=== PATIENT | male | born 1965 | race Caucasian/White ===

== ENCOUNTER 2017-06-08 14:38 | Observation (INO) | payer BC ==
[~2017-06-08] VITALS: Ht 177.8 cm; Wt 123.2 kg
[~2017-06-08 14:38] MED LIST: ACET-1256 PO; ALBUAER2 INH; ASCA500 PO; CANA1TAB PO; CITA40TA4 PO; IBUP-1277 PO; INSUINJ34 SC; INSUINJ4 SC; INSUINJ5 SC; LISI-461 PO; METF-384 PO; METO-478 PO; MULT-506 PO; SIMV20TA2 PO; potassium PO
[2017-06-08] MEDS ORDERED: ONDANSETRON 4MG OD TAB ONE (14:59)
[2017-06-08] MEDS ORDERED: ASPIRIN 324 MG CHEW PO STA (15:01)
--- NOTE | 2017-06-08 15:24 | EMERGENCY ROOM VISIT NOTE ---
History First contact with patient: 14:51 Chief Complaint: CARDIAC ASSESSMENT Stated Complaint: CHEST PAIN Nursing Triage Summary: patient presents via ambulance for pressure across top of chest. "it feels tight in my throat. I have been feeling a pounding in my chest off and on. nausea and dizziness as well. History of Present Illness The patient is a 51 year old male who presents to the Emergency Room with complaints of "chest pain". 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 He states that he has had a headache for 2 days , does not feel quite right. 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 He felt very nauseous. He describes the pain as a burning sensation in his chest. It is not pressure-like. He notes that the pain has now subsided. He felt that given the underlying family history he should be evaluated. He had a baby aspirin last night but none today. There is also shortness of breath accompanying his chest pain. Review of Systems A complete 10-point Review of Systems was discussed with the patient, with pertinent positives and negatives listed in the History of Present Illness. All remaining Review of Systems questions can be considered negative unless otherwise specified. Past Medical/Surgical History Medical Problems: (1) Asthma (2) Diabetes mellitus, type II (3) HLD (hyperlipidemia) (4) HTN (hypertension) (5) Lumbar spinal stenosis (6) Mood disorder (7) JERMAINE on CPAP (8) Osteoarthritis (9) Umbilical hernia Surgical Problems: (1) S/P TKR (total knee replacement) (2) Status post cardiac catheterization Family History Cancer Diabetes mellitus Heart disease Hypertension Kidney disease or stones Social History Smoking Status: Never Smoker Alcohol Use: none Drug Use: none Marital Status: Housing Status: lives with family Occupation Status: employed Current/Historical Medications Scheduled Ascorbic Acid (Vitamin C *), 1,000 MG PO BID Aspirin (Aspirin EC Low Dose), 1 TAB PO PM Canagliflozin (Invokana), 100 MG PO DAILY Citalopram (Citalopram Hydrobromide), 1 TAB PO DAILY Fluticasone Propionate (Flovent Hfa), 2 PUFFS PO BID Insulin Glargine (Lantus Solostar Pen), 30 UNITS SC HS Insulin Glulisine (Apidra Solostar), SC DIRECTED Insulin Glulisine (Apidra), 6 UNITS SC QAM Insulin Glulisine (Apidra), 10 UNITS SC LUNCH,SUPPER Lisinopril (Lisinopril), 1 TAB PO DAILY Magnesium Oxide (Mag-Ox), 2 TABS PO QPM Metformin Hcl (Glucophage), 1,000 MG PO BID Metoprolol Succinate (Toprol Xl), 25 MG PO QPM Multivitamin (Multivitamin), 1 TAB PO QAM Simvastatin (Zocor), 20 MG PO QPM [potassium], 99 MG PO QPM Scheduled PRN Acetaminophen (Tylenol), 2 TABS PO Q4 PRN for Pain Albuterol (Ventolin), 2 PUFFS INH QID PRN for prn Ibuprofen (Advil), 400 MG PO Q4 PRN for Pain Meloxicam (Mobic), 15 MG PO DAILY PRN for Pain Physical Exam Vital Signs Date Time Temp Pulse Resp B/P (MAP) Pulse Ox O2 Delivery O2 Flow Rate FiO2 06/08/17 18:58 85 16 112/83 93 Room Air 06/08/17 17:22 77 16 90/77 95 06/08/17 16:23 135/86 06/08/17 16:08 68 15 92 06/08/17 16:00 125/77 06/08/17 15:38 67 95 06/08/17 15:30 154/88 06/08/17 15:18 78 06/08/17 15:08 71 25 93 06/08/17 15:05 147/77 06/08/17 14:49 95 Room Air 06/08/17 14:49 36.6 76 18 137/84 95 Room Air 06/08/17 14:49 95 Room Air 06/08/17 14:46 137/84 Physical Exam VITAL SIGNS - Vital signs and nursing notes were reviewed. Stable. GENERAL - 51-year-old male appearing his stated age who is in no acute distress. Communicates well with provider and answers questions appropriately. SKIN - bruising noted to the left hand and the anterior abdomen. HEAD - NC/AT. EYES - Sclera anicteric. EARS - No deformities of external structures noted on gross examination bilaterally. NOSE - Midline and without cyanosis. MOUTH/OROPHARYNX - Without perioral cyanosis. LUNGS - Chest wall symmetric without accessory muscle use, intercostals retractions, or central cyanosis. Normal vesicular breath sounds CTA B/L. No wheezes, rales, or rhonchi appreciated. CARDIAC - RRR with S1/S2. No murmur, rubs, or gallops appreciated. ABDOMEN - Abdominal contour normal without pulsations or visible masses. BS normoactive all four quadrants. No tenderness, palpable masses, hepatosplenomegaly, or ascites noted. Medical Decision & Procedures ER Provider Diagnostic Interpretation: CHEST ONE VIEW PORTABLE CLINICAL HISTORY: 51 years-old Male presenting with chest pain. TECHNIQUE: Portable upright AP view of the chest was obtained. COMPARISON: 04/22/2016. FINDINGS: Cardiac silhouette moderately enlarged. Few bandlike opacities at the lung bases. No other focal infiltrate. No large effusion or pneumothorax. Osseous structures normal. IMPRESSION: 1. Cardiomegaly. No isai pulmonary edema. Minimal bibasilar atelectasis. Electronically signed by: Isra Puentes M.D. 06/08/2017 3:49 PM Dictated Date/Time: 06/08/2017 3:48 PM ULTRASOUND VENOUS DOPPLER LWR EXT BILA CLINICAL HISTORY: Dyspnea, chest pain, elevated D dimer COMPARISON STUDY: 01/25/2009 FINDINGS: Real-time and color flow Doppler imaging were performed. Flow was seen within the femoral, popliteal and calf veins with no intraluminal thrombus demonstrated. The saphenous vein is patent. IMPRESSION: No evidence of lower extremity DVT. Electronically signed by: Meng Bennett M.D. 06/08/2017 7:29 PM Dictated Date/Time: 06/08/2017 7:29 PM Laboratory Results 06/08/17 15:00 Red Blood Count 5.16, Mean Corpuscular Volume 89.5, Mean Corpuscular Hemoglobin 30.0, Mean Corpuscular Hemoglobin Concent 33.5, Mean Platelet Volume 10.3, Neutrophils (%) (Auto) 66.9, Lymphocytes (%) (Auto) 22.0, Monocytes (%) (Auto) 9.4, Eosinophils (%) (Auto) 0.8, Basophils (%) (Auto) 0.2, Neutrophils # (Auto) 5.76, Lymphocytes # (Auto) 1.90, Monocytes # (Auto) 0.81, Eosinophils # (Auto) 0.07, Basophils # (Auto) 0.02 06/08/17 15:00 Test 06/08/17 15:00 06/08/17 15:45 White Blood Count 8.62 K/uL (4.8-10.8) Red Blood Count 5.16 M/uL (4.7-6.1) Hemoglobin 15.5 g/dL (14.0-18.0) Hematocrit 46.2 % (42-52) Mean Corpuscular Volume 89.5 fL (80-100) Mean Corpuscular Hemoglobin 30.0 pg (25-34) Mean Corpuscular Hemoglobin Concent 33.5 g/dl (32-36) Platelet Count 214 K/uL (130-400) Mean Platelet Volume 10.3 fL (7.4-10.4) Neutrophils (%) (Auto) 66.9 % Lymphocytes (%) (Auto) 22.0 % Monocytes (%) (Auto) 9.4 % Eosinophils (%) (Auto) 0.8 % Basophils (%) (Auto) 0.2 % Neutrophils # (Auto) 5.76 K/uL (1.4-6.5) Lymphocytes # (Auto) 1.90 K/uL (1.2-3.4) Monocytes # (Auto) 0.81 K/uL (0.11-0.59) Eosinophils # (Auto) 0.07 K/uL (0-0.5) Basophils # (Auto) 0.02 K/uL (0-0.2) RDW Standard Deviation 49.3 fL (36.4-46.3) RDW Coefficient of Variation 15.2 % (11.5-14.5) Immature Granulocyte % (Auto) 0.7 % Immature Granulocyte # (Auto) 0.06 K/uL (0.00-0.02) Prothrombin Time 10.2 SECONDS (9.0-12.0) Prothromb Time International Ratio 1.0 (0.9-1.1) Activated Partial Thromboplast Time 23.1 SECONDS (21.0-31.0) Partial Thromboplastin Ratio 0.9 D-Dimer 860 ug/L FEU (0-500) Anion Gap 10.0 mmol/L (3-11) Est Creatinine Clear Calc Drug Dose 114.4 ml/min Estimated GFR () 96.6 Estimated GFR (Non- 83.3 BUN/Creatinine Ratio 19.0 (10-20) Calcium Level 9.0 mg/dl (8.5-10.1) Magnesium Level 2.2 mg/dl (1.8-2.4) Total Bilirubin 0.4 mg/dl (0.2-1) Aspartate Amino Transf (AST/SGOT) 16 U/L (15-37) Alanine Aminotransferase (ALT/SGPT) 35 U/L (12-78) Alkaline Phosphatase 44 U/L (45-117) Total Creatine Kinase 48 U/L (39-308) Creatine Kinase MB 1.0 ng/ml (0.5-3.6) Creatine Kinase MB Ratio 2.1 (0-3.0) Total Protein 7.2 gm/dl (6.4-8.2) Albumin 3.6 gm/dl (3.4-5.0) Globulin 3.6 gm/dl (2.5-4.0) Albumin/Globulin Ratio 1.0 (0.9-2) Thyroid Stimulating Hormone (TSH) 2.300 uIu/ml (0.300-4.500) Carboxyhemoglobin 0.9 % [facility] Medications Administered Medications (Trade) Dose Ordered Sig/Buddy Route Start Time Stop Time Status Last Admin Dose Admin Aspirin (Aspirin Chew) 324 mg NOW STAT PO 06/08/17 15:01 06/08/17 15:04 DC 06/08/17 15:30 324 MG Acetaminophen (Tylenol Tab) 650 mg NOW STAT PO 06/08/17 18:17 06/08/17 18:18 DC 06/08/17 18:59 650 MG Medical Decision Patient was seen and evaluated as above. He presents to us today with chest pain. He has a heart score 4, given his underlying diabetes, his presentation, hypertension, and age. He was given a full strength aspirin. He had no chest pain upon presentation. IV access was initiated, and the above workup was performed. Bedside EKG per my interpretation reveals normal sinus rhythm, with occasional PVCs. There is no evidence of OR given the study. CBC reveals no concerning leukocytosis or anemia. Carboxyhemoglobin negative, this was ordered secondary to the patient's occupation and recent smoke exposure and headache. Coags normal. Metabolic panel reveals no evidence of kidney or liver failure. He does appear to be dehydrated. Troponin negative. TSH normal. Urine reveals trace ketones, 3+ glucose, otherwise negative. After the patient's kidney function was found to be appropriate decision with benefits versus risk was discussed with the patient regarding obtaining a d- dimer. Although the patient's vital signs are stable, he does have shortness of breath with chest pain. D-dimer was positive. Unfortunately I went to discuss this with the patient and he noted a iodine allergy. He notes he vital he vomits with contrast. I will obtain Doppler studies, and believe that admission for chest pain rule out is appropriate and if needed a VQ scan could be obtained or await the ultrasound results. He appears stable for management. Case was discussed with the attending physician, and septally the hospitalist. Please refer to further documentation regarding the patient's stay. In evaluation treatment this patient the following differential diagnoses were entertained: OR, PE, peritonitis, costochondritis, influenza, asthma, bronchitis , among others. Impression Primary Impression: Chest pain Departure Information Referrals Kailash Soto M.D. (PCP) Patient Instructions [facility]
[2017-06-08 15:40] LABS: BASO % 0.2 %; BASO ABS # 0.02 K/uL (0-0.2); EOS % 0.8 %; EOS ABS # 0.07 K/uL (0-0.5); HEMATOCRIT 46.2 % (42-52); HEMOGLOBIN 15.5 g/dL (14.0-18.0); IG# 0.06 K/uL (0.00-0.02); MEAN CELL VOLUME 89.5 fL (80-100); MEAN CORPUSCULAR HGB CONC 33.5 g/dl (32-36); MEAN PLATELET VOLUME 10.3 fL (7.4-10.4); MONO % 9.4 %; MONO ABS # 0.81 K/uL (0.11-0.59); NEUT % 66.9 %; NEUT ABS # 5.76 K/uL (1.4-6.5); PLATELET COUNT 214 K/uL (130-400); RED CELL DISTRIBUTION WIDTH CV 15.2 % (11.5-14.5); RED CELL DISTRIBUTION WIDTH SD 49.3 fL (36.4-46.3); WHITE BLOOD COUNT 8.62 K/uL (4.8-10.8)
--- NOTE | 2017-06-08 15:50 | DIAGNOSTIC IMAGING REPORT ---
CHEST ONE VIEW PORTABLE CLINICAL HISTORY: 51 years-old Male presenting with chest pain. TECHNIQUE: Portable upright AP view of the chest was obtained. COMPARISON: 04/22/2016. FINDINGS: Cardiac silhouette moderately enlarged. Few bandlike opacities at the lung bases. No other focal infiltrate. No large effusion or pneumothorax. Osseous structures normal. IMPRESSION: 1. Cardiomegaly. No isai pulmonary edema. Minimal bibasilar atelectasis. Electronically signed by: Isra Puentes M.D. 06/08/2017 3:49 PM Dictated Date/Time: 06/08/2017 3:48 PM
[2017-06-08 15:51] LABS: ALBUMIN 3.6 gm/dl (3.4-5.0); ALT/SGPT 35 U/L (12-78); AST/SGOT 16 U/L (15-37); BLOOD UREA NITROGEN 20 mg/dl (7-18); CARBON DIOXIDE 28 mmol/L (21-32); CREATININE 1.04 mg/dl (0.60-1.40); GLUCOSE 147 mg/dl (70-99); POTASSIUM 4.2 mmol/L (3.5-5.1); PTT PATIENT 23.1 SECONDS (21.0-31.0); SODIUM 137 mmol/L (136-145)
[2017-06-08 16:02] LABS: ALKALINE PHOSPHATASE 44 U/L (45-117); TOTAL PROTEIN 7.2 gm/dl (6.4-8.2)
[2017-06-08] MEDS ORDERED: MAGN400T6 PO (16:11)
[2017-06-08] MEDS ORDERED: ACETAMINOPHEN 325 MG TAB PO STA (18:17)
[2017-06-08] MEDS ORDERED: DEXTROSE 50% 50 ML SYR IV PRN (19:15)
[2017-06-08] MEDS ORDERED: GLUCOSE 40% GEL 15 GM TUBE PO PRN (19:15)
[2017-06-08] MEDS ORDERED: GLUCAGON FOR INJ 1 MG VIAL SQ PRN (19:15)
[2017-06-08] MEDS ORDERED: GLUCOSE 10 TABS/TUBE PO PRN (19:15)
--- NOTE | 2017-06-08 19:31 | DIAGNOSTIC IMAGING REPORT ---
ULTRASOUND VENOUS DOPPLER LWR EXT BILA CLINICAL HISTORY: Dyspnea, chest pain, elevated D dimer COMPARISON STUDY: 01/25/2009 FINDINGS: Real-time and color flow Doppler imaging were performed. Flow was seen within the femoral, popliteal and calf veins with no intraluminal thrombus demonstrated. The saphenous vein is patent. IMPRESSION: No evidence of lower extremity DVT. Electronically signed by: Meng Bennett M.D. 06/08/2017 7:29 PM Dictated Date/Time: 06/08/2017 7:29 PM
[2017-06-08] MEDS ORDERED: FLVHFA220 PO (19:40)
[2017-06-08] MEDS ORDERED: LSN5 PO (19:40)
[2017-06-08] MEDS ORDERED: MELO15TA10 PO (19:40)
[2017-06-08] MEDS ORDERED: ASPEC81 PO (19:40)
[2017-06-08] MEDS ORDERED: ACET-1311 PO (19:42)
[2017-06-08] MEDS ORDERED: ONDANSETRON INJ 2 MG/ML 2 ML VIAL IV PRN (19:45)
[2017-06-08] MEDS ORDERED: MELOXICAM 7.5 MG TAB PO PRN (19:45)
[2017-06-08] MEDS ORDERED: ALBUTEROL HFA 8 GM INHALER INH PRN (19:45)
--- NOTE | 2017-06-08 19:48 | History and Physical ---
History & Physical Date & Time of Service: Jun 08, 2017 at 19:46 Chief Complaint: Chest Pain Primary Care Physician: Kailash Soto M.D. History of Present Illness Source: patient, clinic records, hospital records This is a 51yo M with a PMH of HTN, DM II, HLD, depression/anxiety, JERMAINE (with cpap) and other medical problems listed below who presents with a burning sensation in his chest beginning this afternoon. 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 Describes it as a warm, burning feeling that would last for a minute at a time, resolve and then occur again. Associated with nausea, lightheadedness and palpitations. Denies any pressure, sharp pain or diaphoresis. Was brought to the ED for further evaluation. States that he has experienced both panic attacks and GERD in the past and that this event felt like a more severe version of a panic attack. Endorses feeling stressed lately because of work. Underwent a cardiac work-up in 2008, which was negative. Dobutamine stress test was negative for inducible ischemia and cardiac cath performed in [facility] for persistent symptoms showed normal coronary arteries. Was evaluated again in 2015 for chest pain and underwent exercise stress test. No evidence of inducible ischemia but was a sub-optimal test as it was stopped early 2/2 leg fatigue. Echo from Apr 2016 with normal LV function, EF of 60-65%. + family history of heart disease. Was seen in late May by PCP for treatment of sinusitis and PNA. Has completed a course of azithromycin and was prescribed a flovent inhaler he has been using twice a day. States that his cough and SOB have improved but he still has not "felt like himself" for a few days now, with a dull frontal headache and diarrhea. Denies any sick contacts. Past Medical/Surgical History Medical Problems: (1) Asthma Status: Chronic (2) Diabetes mellitus, type II Status: Chronic (3) HLD (hyperlipidemia) Status: Chronic (4) HTN (hypertension) Status: Chronic (5) Lumbar spinal stenosis Status: Chronic (6) Mood disorder Status: Chronic (7) JERMAINE on CPAP Status: Chronic (8) Osteoarthritis Status: Chronic (9) Umbilical hernia Status: Chronic Surgical Problems: (1) S/P TKR (total knee replacement) Status: Chronic (2) Status post cardiac catheterization Permanent Comment: 02/10/16 [facility] - normal coronaries Status: Chronic Family History Cancer Diabetes mellitus Heart disease Hypertension Kidney disease or stones Social History Smoking Status: Never Smoker Drug Use: none Marital Status: Housing status: lives with family Occupational Status: employed Immunizations History of Influenza Vaccine: Yes History of Tetanus Vaccine?: Yes History of Pneumococcal: Yes History of Hepatitis B Vaccine: No Multi-Drug Resistant Organisms History of MDRO: No Allergies Coded Allergies: Amoxicillin (Verified Allergy, Intermediate, hives, 06/08/17) Cephalosporins (Verified Allergy, Intermediate, hives, 06/08/17) Penicillins (Verified Allergy, Intermediate, hives, 06/08/17) Cefaclor (Unverified Allergy, Unknown, HIVES , 06/08/17) Iodinated Diagnostic Agents (Verified Adverse Reaction, Intermediate, vomiting, 06/08/17) Home Medications Scheduled Ascorbic Acid (Vitamin C *), 1,000 MG PO BID Aspirin (Aspirin EC Low Dose), 1 TAB PO PM Canagliflozin (Invokana), 100 MG PO DAILY Citalopram (Citalopram Hydrobromide), 1 TAB PO DAILY Fluticasone Propionate (Flovent Hfa), 2 PUFFS PO BID Insulin Glargine (Lantus Solostar Pen), 30 UNITS SC HS Insulin Glulisine (Apidra Solostar), SC DIRECTED Insulin Glulisine (Apidra), 6 UNITS SC QAM Insulin Glulisine (Apidra), 10 UNITS SC LUNCH,SUPPER Lisinopril (Lisinopril), 1 TAB PO DAILY Magnesium Oxide (Mag-Ox), 2 TABS PO QPM Metformin Hcl (Glucophage), 1,000 MG PO BID Metoprolol Succinate (Toprol Xl), 25 MG PO QPM Multivitamin (Multivitamin), 1 TAB PO QAM Simvastatin (Zocor), 20 MG PO QPM [potassium], 99 MG PO QPM Scheduled PRN Acetaminophen (Tylenol), 2 TABS PO Q4 PRN for Pain Albuterol (Ventolin), 2 PUFFS INH QID PRN for prn Ibuprofen (Advil), 400 MG PO Q4 PRN for Pain Meloxicam (Mobic), 15 MG PO DAILY PRN for Pain Review of Systems Constitutional: No fever, No chills, No sweats Eyes: No worsening of vision, No eye pain ENT: No nasal symptoms, No sore throat Respiratory: + shortness of breath, + dyspnea on exertion, No cough, No sputum , No wheezing, No dyspnea at rest, No hemoptysis, No problem reported Cardiovascular: + edema, + palpitations, No orthopnea, No PND, No claudication , No problem reported Abdomen: + diarrhea, No pain, No nausea, No vomiting, No constipation, No GI bleeding Musculoskeletal: No muscle pain, No swelling, No calf pain Genitourinary - Male: No dysuria, No urinary frequency Neurologic: No weakness, No numbness/tingling Psychiatric: + anxiety Physical Exam Vital Signs Date Time Temp Pulse Resp B/P (MAP) Pulse Ox O2 Delivery O2 Flow Rate FiO2 06/08/17 19:42 80 17 155/64 92 Room Air 06/08/17 18:58 85 16 112/83 93 Room Air 06/08/17 17:22 77 16 90/77 95 06/08/17 16:23 135/86 06/08/17 16:08 68 15 92 06/08/17 16:00 125/77 06/08/17 15:38 67 95 06/08/17 15:30 154/88 06/08/17 15:18 78 06/08/17 15:08 71 25 93 06/08/17 15:05 147/77 06/08/17 14:49 95 Room Air 06/08/17 14:49 36.6 76 18 137/84 95 Room Air 06/08/17 14:49 95 Room Air 06/08/17 14:46 137/84 General Appearance: WD/WN, no apparent distress, + obese, + pertinent finding ( Sitting upright, breathing comfortably on room air. ) Head: normocephalic, atraumatic Eyes: normal inspection, PERRL, sclerae normal ENT: normal ENT inspection, hearing grossly normal, pharynx normal (moist mucous membranes ) Neck: supple, thyroid normal, no JVD, trachea midline Respiratory/Chest: chest non-tender, lungs clear, normal breath sounds, no respiratory distress, no accessory muscle use Cardiovascular: regular rate, rhythm, no murmur, normal peripheral pulses Abdomen/GI: non tender, soft, no organomegaly, + pertinent finding (Multiple ecchymoses from recent fall, insulin injections ) Back: normal inspection Extremities/Musculoskelatal: normal inspection, no calf tenderness, no pedal edema Neurologic/Psych: no motor/sensory deficits, alert, normal mood/affect, oriented x 3 Skin: normal color, warm/dry Diagnostics Laboratory Results Results Past 24 Hours Test 06/08/17 15:00 06/08/17 15:45 Range/Units White Blood Count 8.62 4.8-10.8 K/uL Red Blood Count 5.16 4.7-6.1 M/uL Hemoglobin 15.5 14.0-18.0 g/dL Hematocrit 46.2 42-52 % Mean Corpuscular Volume 89.5 80-100 fL Mean Corpuscular Hemoglobin 30.0 25-34 pg Mean Corpuscular Hemoglobin Concent 33.5 32-36 g/dl Platelet Count 214 130-400 K/uL Mean Platelet Volume 10.3 7.4-10.4 fL Neutrophils (%) (Auto) 66.9 % Lymphocytes (%) (Auto) 22.0 % Monocytes (%) (Auto) 9.4 % Eosinophils (%) (Auto) 0.8 % Basophils (%) (Auto) 0.2 % Neutrophils # (Auto) 5.76 1.4-6.5 K/uL Lymphocytes # (Auto) 1.90 1.2-3.4 K/uL Monocytes # (Auto) 0.81 0.11-0.59 K/uL Eosinophils # (Auto) 0.07 0-0.5 K/uL Basophils # (Auto) 0.02 0-0.2 K/uL RDW Standard Deviation 49.3 36.4-46.3 fL RDW Coefficient of Variation 15.2 11.5-14.5 % Immature Granulocyte % (Auto) 0.7 % Immature Granulocyte # (Auto) 0.06 0.00-0.02 K/uL Prothrombin Time 10.2 9.0-12.0 SECONDS Prothromb Time International Ratio 1.0 0.9-1.1 Activated Partial Thromboplast Time 23.1 21.0-31.0 SECONDS Partial Thromboplastin Ratio 0.9 D-Dimer 860 0-500 ug/L FEU Sodium Level 137 136-145 mmol/L Potassium Level 4.2 3.5-5.1 mmol/L Chloride Level 99 98-107 mmol/L Carbon Dioxide Level 28 21-32 mmol/L Anion Gap 10.0 3-11 mmol/L Blood Urea Nitrogen 20 7-18 mg/dl Creatinine 1.04 0.60-1.40 mg/dl Est Creatinine Clear Calc Drug Dose 114.4 ml/min Estimated GFR () 96.6 Estimated GFR (Non- 83.3 BUN/Creatinine Ratio 19.0 10-20 Random Glucose 147 70-99 mg/dl Calcium Level 9.0 8.5-10.1 mg/dl Magnesium Level 2.2 1.8-2.4 mg/dl Total Bilirubin 0.4 0.2-1 mg/dl Aspartate Amino Transf (AST/SGOT) 16 15-37 U/L Alanine Aminotransferase (ALT/SGPT) 35 12-78 U/L Alkaline Phosphatase 44 45-117 U/L Total Creatine Kinase 48 39-308 U/L Creatine Kinase MB 1.0 0.5-3.6 ng/ml Creatine Kinase MB Ratio 2.1 0-3.0 Troponin I < 0.015 0-0.045 ng/ml Total Protein 7.2 6.4-8.2 gm/dl Albumin 3.6 3.4-5.0 gm/dl Globulin 3.6 2.5-4.0 gm/dl Albumin/Globulin Ratio 1.0 0.9-2 Thyroid Stimulating Hormone (TSH) 2.300 0.300-4.500 uIu/ml Carboxyhemoglobin 0.9 % [facility] Diagnostic Radiology CXR: IMPRESSION: 1. Cardiomegaly. No isai pulmonary edema. Minimal bibasilar atelectasis. Venous doppler: IMPRESSION: No evidence of lower extremity DVT. EKG Sinus rhythm with occasional PVCs. Left atrial enlargement. Poor R wave progression. (PVCs are new since previous EKG) Impression Assessment and Plan This is a 51yo M with a PMH of HTN, DM II, HLD, depression/anxiety, JERMAINE (with cpap) and other medical problems listed below who presents with a burning sensation in his chest beginning this afternoon. Chest pain: -R/o ACS; risk factors include HTN, DM II, HLD, + family history -Previous work-ups in 2008, 2016 negative -Endorses increased anxiety, likely a component -Initial troponin negative -D dimer + at [address] chest not performed due to patient reporting allergy to iodine (perfuse vomiting) -Lower extremity u/s without evidence of DVT -Radiology willing to do VQ scan but would prefer to pre-medicate and do CT chest -EKG-without acute ischemic changes -CXR-cardiomegaly, no isai pulmonary edema -Trend serial cardiac enzymes -Cont baby aspirin, statin -Check echo -Repeat EKG in am Anxiety/depression: -Depression stable, reports increased anxiety -Cont home dose celexa -Initiated buspar at starting dose JERMAINE: -CPAP HS DM II: -Historically uncontrolled -Last a1c on file 11.3 in Apr 2016 -Recheck a1c -Held home agents -Basal bolus regimen per protocol -Diabetic education -BG checks AC HS HTN: -Normotensive -Cont home lisinopril, metoprolol succinate HLD: -Cont statin Asthma, resolving PNA: -Cont flovent inhaler, albuterol PRN OA: -Cont mobic, tylenol DVT Ppx: SQ heparin Code status: FULL PCP: Brittany Dispo: Observation telemetry. Plan to return home once medically stable. Patient seen in collaboration with Dr. Diez. Please see addendum. ADDENDUM: This is a 51 year old obese male with a PMH of insulin dependent DM2, HTN, depression/anxiety, JERMAINE on CPAP, asthma - presents with chest pressure. Pressure began prior to arrival substernally and radiated to the jaw. As per patient, he called EMS; by that time, pain had subsided. States he's had anxiety/panic attacks in the past that felt similar. c/o shortness of breath during this episode; has a hx. of asthma. Currently resting comfortably in no distress Plan: will trend cardiac enzymes check a resting echo consult cardiology; has had a stress test in April 2016 with no issues chest pain is possibly related to anxiety; will add BuSpar and continue Celexa d-dimer was also checked in the ED and was elevated; LE Dopplers are negative. Patient with contrast allergy as well as claustrophobia; will try V/Q scan in AM will check an A1c; last one was greater than 8% and he has had his A1c >11% in the past hold Invokana and metformin; will do Lantus 15 units BID (as opposed to home dose of 30 units daily); and a sliding scale counseled on weight loss Level of Care Telemetry Resuscitation Status FULL RESUSCITATION VTE Prophylaxis VTE Risk Assessment Done? Y/N: Yes Risk Level: Moderate Given or contraindicated: Unfractionated heparin SQ
[2017-06-08 20:50] VITALS: BP 148/81; PULSE 79; TEMP 37; O2SAT 95; BMI 39.1
[2017-06-08] MEDS ORDERED: SIMVASTATIN 20 MG TAB PO SCH (21:00)
[2017-06-08] MEDS ORDERED: METOPROLOL SUCC 25MG EXT REL TAB PO SCH (21:00)
[2017-06-08] MEDS ORDERED: MAGNESIUM OXIDE 400 MG TAB PO SCH (21:00)
[2017-06-08] MEDS: FLUTICASONE HFA 220 MCG INHALER INH SCH (22:17)
[2017-06-08] MEDS: BusPIRone 15 MG TAB PO SCH (22:18)
[2017-06-08] MEDS: INSULIN GLARGINE SOLOSTAR 100 UNITS/ML 3 ML PEN SC SCH (22:23)
[2017-06-08] MEDS: INSULIN ASPART 100 UNITS/ML 3 ML PEN SC SCH (22:24)
[2017-06-08] MEDS: HEPARIN SOD 5000 UNIT/0.5 ML CARP SQ SCH (22:24)
[2017-06-08 23:22] VITALS: BP 119/69; PULSE 55; TEMP 36.9; O2SAT 91
[2017-06-08] MEDS: ACETAMINOPHEN 325 MG TAB PO PRN (23:28)
[2017-06-09 02:55] LABS: HEMATOCRIT 45.7 % (42-52); HEMOGLOBIN 14.8 g/dL (14.0-18.0); MEAN CELL VOLUME 90.3 fL (80-100); MEAN CORPUSCULAR HEMOGLOBIN 29.2 pg (25-34); MEAN CORPUSCULAR HGB CONC 32.4 g/dl (32-36); MEAN PLATELET VOLUME 10.4 fL (7.4-10.4); PLATELET COUNT 211 K/uL (130-400); RED CELL DISTRIBUTION WIDTH CV 15.1 % (11.5-14.5); RED CELL DISTRIBUTION WIDTH SD 49.1 fL (36.4-46.3); WHITE BLOOD COUNT 7.12 K/uL (4.8-10.8)
[2017-06-09 03:10] VITALS: BP 122/85; PULSE 49; TEMP 36.2; O2SAT 93
[2017-06-09 03:11] LABS: BLOOD UREA NITROGEN 18 mg/dl (7-18); CALCIUM 8.5 mg/dl (8.5-10.1); CARBON DIOXIDE 30 mmol/L (21-32); CREATININE 0.98 mg/dl (0.60-1.40); GLUCOSE 158 mg/dl (70-99); POTASSIUM 4.2 mmol/L (3.5-5.1); SODIUM 136 mmol/L (136-145)
[2017-06-09] MEDS: HEPARIN SOD 5000 UNIT/0.5 ML CARP SQ SCH ×2 (05:41→14:00)
[2017-06-09] MEDS: ACETAMINOPHEN 325 MG TAB PO PRN (05:44)
[2017-06-09 07:39] VITALS: BP 130/72; PULSE 56; TEMP 36.8; O2SAT 91
[2017-06-09] MEDS: INSULIN ASPART 100 UNITS/ML 3 ML PEN SC SCH ×3 (08:18→17:14)
[2017-06-09] MEDS: INSULIN GLARGINE SOLOSTAR 100 UNITS/ML 3 ML PEN SC SCH (08:19)
[2017-06-09] MEDS ORDERED: LISINOPRIL 5 MG TAB PO SCH (09:00)
[2017-06-09] MEDS ORDERED: CITALOPRAM 40 MG TAB PO SCH (09:00)
--- NOTE | 2017-06-09 09:02 | DIAGNOSTIC IMAGING REPORT ---
NUCLEAR PULMONARY VENTILATION/PERFUSION SCAN CLINICAL HISTORY: Atypical chest pain. COMPARISON STUDY: Chest x-ray dated 06/08/2017. Chest CT dated 06/22/2014. TECHNIQUE: Initially, ventilation images of both lungs are obtained following the inhalation of 26.9 mCi of aerosolized technetium 99m DTPA. Subsequently, perfusion images of both lungs were obtained following the IV administration of 5.3 mCi of technetium 99m MAA. Ventilation and perfusion images were acquired in the anterior, posterior, and oblique projections. FINDINGS: A chest x-ray performed 06/08/2017 shows cardiac enlargement. The lungs are clear noting basilar atelectasis. The ventilation of both lungs is normal and symmetric. There is mild clumping of tracer within the central airways suggesting obstructive physiology. Inhaled tracer is noted in the stomach. No perfusion defects are identified on the perfusion imaging. IMPRESSION: Findings are considered low probability for pulmonary embolus. Electronically signed by: Josue Marcos M.D. 06/09/2017 9:00 AM Dictated Date/Time: 06/09/2017 8:58 AM
[2017-06-09] MEDS: BusPIRone 15 MG TAB PO SCH (09:17)
[2017-06-09] MEDS: FLUTICASONE HFA 220 MCG INHALER INH SCH (09:18)
--- NOTE | 2017-06-09 10:02 | CARDIOLOGY CONSULTATION ---
DATE OF CONSULTATION: 06/09/2017 REFERRING PHYSICIAN: Deejay Diez DO. REASON FOR CONSULTATION: Chest pain. HISTORY OF PRESENT ILLNESS: A 51-year-old male presented to the Emergency Department with chest burning, radiating to his jaw. The patient carries a history of hypertension, diabetes, hyperlipidemia, depression/anxiety, and obstructive sleep apnea on CPAP. He describes battling cold-like symptoms for 3 months. He reports a severe asthma attack over the weekend. On the day of admission he developed an episode of epigastric discomfort, chest burning with jaw pain. There was no associated shortness of breath. He became concerned. The patient was working at [employer]. He was brought to the Emergency Department via EMS. Discomfort slowly resolved. Cardiac enzymes are negative thus far. No ischemic ECG changes, however, frequent PVCs noted on presentation. The patient describes intermittent palpitations without syncope or near syncope. Denies any sustained tachy palpitations. Reports "not feeling like himself" for a few days. No subjective fever or chills. Denies cough, rhinorrhea, abdominal discomfort, constipation, or diarrhea. His appetite has been normal. Denies sick contacts. No orthopnea, PND, lower extremity edema, or claudication. Currently, patient is asymptomatic. VQ scan performed this a.m. with results pending. Offers no other complaints at this time. REVIEW OF SYSTEMS: The pertinent positive noted above, a comprehensive 10-system review is otherwise negative. PAST MEDICAL HISTORY: 1. Normal coronary arteries per catheterization in 2008. 2. Diabetes type 2. 3. Asthma. 4. Dyslipidemia. 5. Hypertension. 6. Spinal stenosis. 7. Obstructive sleep apnea on CPAP. 8. Osteoarthritis. 9. Chronic low back pain. 10. Umbilical hernia. PAST SURGICAL HISTORY: 1. Cardiac catheterization in 2008 -- normal coronary arteries. 2. Total knee replacement. 3. Spinal surgery. FAMILY HISTORY: Father with coronary disease in his 60s. The patient denies family history of premature coronary artery disease or sudden cardiac . SOCIAL HISTORY: Lifelong nonsmoker. He is . Lives with his family. 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 ALLERGIES: AMOXICILLIN, CEPHALOSPORIN, PENICILLIN, CEFACLOR, IODINATED CONTRAST. HOME MEDICATIONS: 1. Aspirin 81 mg daily. 2. Flovent 2 times daily. 3. Lantus 30 units subQ daily. 4. Prinivil 5 mg daily. 5. Meloxicam 15 mg as needed. 6. Simvastatin 20 mg daily. 7. Toprol-XL 25 mg daily. 8. Celexa 40 mg daily. 9. Invokana 100 mg daily. 10. Metformin 1000 mg twice daily. 11. Magnesium 70 mg daily. 12. Albuterol inhaler 2 puffs 4 times daily as needed. 13. Tylenol as needed. 14. Multivitamin daily. 15. Potassium 99 mg daily. EKG on admission: Sinus rhythm, occasional premature ventricular complexes, poor R-wave progression. Compared to prior tracing PVCs now present. Chest x-ray performed on admission minimal atelectasis. VENOUS DUPLEX: No evidence of DVT. NUCLEAR STUDY: Low probability for pulmonary embolus. LABORATORY DATA: Troponins negative x3 sets. Sodium 136, potassium 4.2, chloride 100, CO2 30, BUN is 18, creatinine is 0.98. Glucose 145. Triglycerides 198, total cholesterol 140. LDL 60, HDL 40. INR is 1.0. White blood cell count 7.12, hemoglobin is 14.8, platelet count is 211. TELEMETRY: Sinus rhythm with PVCs. PHYSICAL EXAMINATION: VITAL SIGNS: Temperature is 36.8 degrees Fahrenheit, pulse 76 beats per minute and regular, respiratory rate is 18 breaths per minute, blood pressure 130/72, SAO2 is 91% on room air. GENERAL: NAD, obese, awake, alert and oriented x3. HEENT: Mucous membranes moist. No scleral icterus. Conjunctivae pink. NECK: Supple without JVD or HJR. No carotid bruit. HEART: Regular with a normal S1 and S2. There is no murmur, rub or gallop. LUNGS: Clear. There are no rales, rhonchi or wheeze. ABDOMEN: Soft and nontender. No rebound or guarding. Normal bowel sounds. EXTREMITIES: Warm and dry without clubbing, cyanosis, or edema. The posterior tibial pulses are 2/4 bilaterally. NEUROLOGIC: Demonstrates no focal motor deficit. FINAL IMPRESSION: 1. A 51-year-old male presents with atypical chest discomfort radiating to the jaw. Initial cardiovascular evaluation including cardiac enzymes and ECG unremarkable. 2. Premature ventricular contractions with associated palpitations. 3. History of normal coronary arteries per catheterization in 2008. 3. Diabetes type 2. 4. Dyslipidemia -- tolerating simvastatin. 5. Hypertension -- controlled. PLAN AND RECOMMENDATIONS: Dobutamine stress echocardiography will be performed for further evaluation and risk stratification. Continue current cardiovascular medications including metoprolol, lisinopril, aspirin and simvastatin. Continue to monitor telemetry during hospitalization, may require titration of beta-silvia to control symptomatic PVCs. Complete resting 2D transthoracic echo will be performed prior to dobutamine stress testing. Further recommendations pending review of stress test. Thank you for allowing me to take part in the care of your patient.
[2017-06-09] MEDS ORDERED: METOPROLOL TARTRATE 1 MG/ML VIAL ONE (10:58)
[2017-06-09] MEDS ORDERED: DOBUTamine HCL 12.5 MG/ML 20 ML VIAL ONE (10:58)
[2017-06-09] MEDS ORDERED: ATROPINE SULFATE 0.1 MG/ML 5ML SYR ONE (10:58)
[2017-06-09 11:51] VITALS: Ht 177.8 cm; Wt 123.2 kg
--- NOTE | 2017-06-09 12:14 | Cardiology Procedure Brief Nt ---
Preliminary Cardiology Note Procedure Date Jun 09, 2017. Pre-Procedure Diagnosis chest pain Post-Procedure Diagnosis non ischemic response to dobutamine stress test Procedure(s) Performed Dobutamine stress echocardiogram Hide Spreader Courtney Cervantes DO Electrical Tryout Person(s) MAGO Lee Estimated Blood Loss none Preliminary Findings Frequent PVCs were noted at baseline and low levels of pharmacologic stress that decreased in frequency at higher heart rates. EKG negative for ischemia. Resting wall motion was normal, with normal augmentation with pharmacologic stress. No symptoms suggestive of angina were induced having achieved adequate diagnostic heart rate response. Recommendations Negative DSE. Continue home medications for ongoing risk factor modification. Has frequent , asymptomatic PVCs, normal LVEF. Continue chronic metoprolol therapy. Stable for DC from cardiac perspective. Follow up with PCP. Specimens none Complication(s) None Disposition PCU
[2017-06-09 12:32] VITALS: BP 119/80; PULSE 64; TEMP 36.8; O2SAT 93
[2017-06-09] MEDS ORDERED: PERFLUTREN LIPID MICROSPHERE (DEFINITY) IV ONE (12:38)
[2017-06-09 14:52] VITALS: BP 117/69; PULSE 48; TEMP 36.5; O2SAT 93
--- NOTE | 2017-06-09 15:25 | DOBUTAMINE ECHO ---
*NOTICE TO RECEIVING [employer] This information is strictly Confidential and protected under [place] law. [place] law prohibits you from making any further disclosure of this information unless further disclosure is expressly permitted by the written consent of the person to whom it pertains or is authorized by law. A general authorization for the release of medical or other information is not sufficient for this purpose. Hospital accepts no responsibility if the information is made available to any other person, INCLUDING THE PATIENT. Interpretation Summary * Name: ZAINAB VILLEGAS Study Date: 06/09/2017 10:34 AM BP: 113/91 mmHg * Patient Location: [facility] HR: 63 * : 1965 (M/d/yyyy) Gender: Male Height: 70 in * Age: 51 yrs Ethnicity: CA Weight: 283 lb * Ordering Physician: Abelardo Oliver * Referring Physician: MONICA * Performed By: Damaris Thompson RDCS * * Reason For Study: CHEST PAIN * BSA: 2.4 m2 * -- Conclusions -- * STRESS STUDY: * Normal exercise stress echocardiogram. No echocardiographic or ECG evidence of myocardial ischemia having achieved heart rate adequate for diagnostic purposes. * The stress ECG response was negative for ischemia. * Frequent unifocal PVCs were noted at rest and low level of pharmacologic stress that decreased in frequency at peak heart rates and returned in the post stress recovery interval. * No subjective palpitations were reported. * No symptoms suggestive of angina were reported. * RESTING STUDY: * The LV Ejection Fraction = 55-60%. * The right ventricle is mildly dilated. * The right ventricular systolic function is normal as assessed by tricuspid annular plane systolic excursion (TAPSE) (normal >1.5 cm). * Doppler findings do not suggest pulmonary hypertension. * Compared to the prior study dated 04/22/16, the mild RV enlargement was noted at that time and is unchanged. Procedure Details * DOBUTAMINE ECHO, CPT#08195 * A contrast injection of Definity was performed to improve assessment of LV function. * Contrast was injected into an intravenous site in the right arm. * One vial of Definity ultrasound contrast was diluted in normal saline to a total volume of 10 ml. A total of '8' ml of solution was administered during imaging. * Lot # [id number] of Definity utilized for procedure. * Expiration date JUN 22. * The attending nurse who injected the contrast agent was SERGE COLORADO RN. * ECHOEX, CPT #[id number] * ECHO DOPPLER, CPT #[id number] * ECHO COLOR FLOW, CPT #[id number] Left Ventricle * The left ventricle is normal in size. * There is normal left ventricular wall thickness. * Ejection Fraction = 55-60%. * Left ventricular systolic function is normal. * Resting wall motion: Normal. Stress wall motion: Appropriate increase in Left ventricular systolic function and decrease in cavity size. No stress induced segmental wall motion abnormalities. Right Ventricle * The right ventricle is mildly dilated. * The right ventricular systolic function is normal as assessed by tricuspid annular plane systolic excursion (TAPSE) (normal >1.5 cm). Atria * The left atrial size is normal. * Right atrial size is normal. * No ASD detected; PFO is not assessed. Mitral Valve * The mitral valve is normal. * There is no mitral valve stenosis. * Significant mitral regurgitation is absent. Tricuspid Valve * The tricuspid valve is normal. * There is no tricuspid stenosis. * Significant tricuspid regurgitation is absent. * Doppler findings do not suggest pulmonary hypertension. Aortic Valve * The aortic valve is trileaflet. * No hemodynamically significant valvular aortic stenosis. * No aortic regurgitation is present. Pulmonic Valve * The pulmonic valve is not well visualized. Great Vessels * The aortic root is normal size. Pericardium * There is no pericardial effusion. Stress Parameters * The baseline ECG reveals sinsus rhythm with frequent PVCs. * The stress ECG response was negative for ischemia. Frequent unifocal PVCs were noted at rest and low level of pharmacologic stress that decreased in frequency at peak heart rates and returned in the post stress recovery interval. * The stress portion of this study was personally supervised by the undersigned interpreting physician. * Rest heart rate was '63' BPM. * Rest blood pressure was '113/91' * Maximum heart rate achieved was 146 bpm. * Maximum heart rate was 85 % of maximum age-predicted heart rate. * Maximum blood pressure was '211/63' * Maximum Dobutamine infusion rate was '40' mcg/kg/min. * A total of .75 mg of intravenous Atropine was used to supplement Dobutamine for heart rate response. * Dobutamine infusion was terminated due to achieving target heart rate * A total of 10 mg of IV Metoprolol was administered to reverse Dobutamine-induced tachycardia. Left Ventricular Diastolic Function * Grade I diastolic dysfunction, (abnormal relaxation pattern). MMode 2D Measurements and Calculations IVSd 0.89 cm IVSs 1.3 cm LVIDd 4.9 cm LVIDs 3.3 cm LVPWd 1.3 cm LVPWs 1.5 cm IVS/LVPW 0.68 FS 33.5 % EDV(Teich) 113.4 ml ESV(Teich) 43.0 ml EF(Teich) 62.0 % EDV(cubed) 118.4 ml ESV(cubed) 34.8 ml EF(cubed) 70.6 % % IVS thick 42.9 % % LVPW thick 14.6 % LV mass(C)d 199.1 grams LV mass(C)dI 82.3 grams/m\S\2 LV mass(C)s 153.2 grams LV mass(C)sI 63.3 grams/m\S\2 SV(Teich) 70.3 ml SI(Teich) 29.1 ml/m\S\2 SV(cubed) 83.5 ml SI(cubed) 34.5 ml/m\S\2 LA dimension 3.7 cm Doppler Measurements and Calculations MV E max hank 110.6 cm/sec MV A max hank 83.9 cm/sec MV E/A 1.3 MV dec time 0.29 sec Ao V2 max 137.9 cm/sec Ao max PG 7.6 mmHg Ao max PG (full) 3.9 mmHg LV V1 max PG 3.7 mmHg LV V1 max 96.0 cm/sec
[2017-06-09 16:00] VITALS: O2SAT 93
--- NOTE | 2017-06-09 16:32 | Progress Note ---
Medicine Progress Note Date & Time of Visit: Jun 09, 2017 at 16:32 . Subjective No further chest pain. Stress test went well. Pt expresses concerns about PVC's. . Objective Last 8 Hrs Date Time Temp Pulse Resp B/P (MAP) Pulse Ox O2 Delivery O2 Flow Rate FiO2 06/09/17 14:52 36.5 48 19 117/69 (85) 93 Room Air 06/09/17 12:32 36.8 64 19 119/80 (93) 93 Room Air 06/09/17 12:23 Room Air Physical Exam: General- no distress Neck- no JVD Lungs- clear Heart- RRR with occasional ectopy Abdomen- + BS, soft, nontender Extremities- no edema or calf tenderness Neuro- alert . Laboratory Results: Last 24 Hours Test 06/08/17 21:18 06/08/17 21:24 06/08/17 22:30 06/09/17 02:37 Troponin I < 0.015 ng/ml < 0.015 ng/ml Bedside Glucose 223 mg/dl Urine Color YELLOW Urine Appearance CLEAR Urine pH 5.0 Urine Specific [place] 1.040 Urine Protein NEG Urine Glucose (UA) 3+ Urine Ketones TRACE Urine Occult Blood NEG Urine Nitrite NEG Urine Bilirubin NEG Urine Urobilinogen NEG Urine Leukocyte Esterase NEG White Blood Count 7.12 K/uL Red Blood Count 5.06 M/uL Hemoglobin 14.8 g/dL Hematocrit 45.7 % Mean Corpuscular Volume 90.3 fL Mean Corpuscular Hemoglobin 29.2 pg Mean Corpuscular Hemoglobin Concent 32.4 g/dl RDW Standard Deviation 49.1 fL RDW Coefficient of Variation 15.1 % Platelet Count 211 K/uL Mean Platelet Volume 10.4 fL Sodium Level 136 mmol/L Potassium Level 4.2 mmol/L Chloride Level 100 mmol/L Carbon Dioxide Level 30 mmol/L Anion Gap 6.0 mmol/L Blood Urea Nitrogen 18 mg/dl Creatinine 0.98 mg/dl Est Creatinine Clear Calc Drug Dose 118.9 ml/min Estimated GFR () 103.8 Estimated GFR (Non- 89.5 BUN/Creatinine Ratio 18.1 Random Glucose 158 mg/dl Estimated Average Glucose 212 mg/dl Hemoglobin A1c 9.0 % Calcium Level 8.5 mg/dl Test 06/09/17 05:33 06/09/17 06:36 06/09/17 12:27 06/09/17 16:12 Triglycerides Level 198 mg/dl Cholesterol Level 140 mg/dl HDL Cholesterol 40 mg/dl LDL Cholesterol, Calculated 60 mg/dl VLDL Cholesterol, Calculated 40 mg/dl Cholesterol/HDL Ratio 3.5 Bedside Glucose 145 mg/dl 145 mg/dl Other Studies: EKG performed at 06:24 reviewed and demonstrated NSR at 60 / minute, PVC's, no acute ST or T-wave abnormalities. . Assessment & Plan CHEST PAIN Serial troponins negative. D-dimer elevated. Venous duplex lower extremities negative for DVT. V/Q scan low probability for pulmonary embolism. Cardiology consulted. Rest echo showed normal LV wall motion and systolic function. No stress-induced ischemia on dobutamine stress echo. VENTRICULAR ECTOPY Frequent PVC's, sometimes bigeminal. K+, Mg++, TSH OK. LVEF normal. No stress-induced ischemia on dobutamine stress echo. Patient consumes caffeinated beverages and uses decongestants. Advised to avoid stimulants. Continue metoprolol (dose not increased because of bradycardia). Patient concerned that ventricular ectopy might be worrisome. He was reassured that ventricular ectopy of this nature is usually benign. Consider outpatient Holter or cardiac event monitor if symptomatic palpitations continue. HYPERTENSION Continue metoprolol and lisinopril. SLEEP APNEA Continue CPAP. DM TYPE 2 Not very well-controlled. Hgb A1C 9.0. FBS 145. Discharge on usual regimen with ongoing outpatient support / education. VTE PROPHYLAXIS SQ heparin. Ambulating. DISPOSITION Expected discharge to home. Family Medicine follow-up with Dr. Soto. . Consultants: Cardiology . Procedures: cardiac monitoring venous duplex lower extremities V/Q scan echocardiogram dobutamine stress echo . Current Inpatient Medications: Current Inpatient Medications Medications (Trade) Dose Ordered Sig/Buddy Route Start Time Stop Time Status Last Admin Dose Admin Heparin Sodium (Porcine) (Heparin Sq 5000 Unit/0.5ml) 5,000 unit Q8 SQ 06/08/17 22:00 07/08/17 21:59 06/09/17 05:41 5,000 UNIT Insulin Glargine (Lantus Solostar Pen) 15 units Q12 SC 06/08/17 21:00 07/08/17 20:59 06/09/17 08:19 15 UNITS Insulin Aspart (novoLOG ASPART) SLIDING SCALE If C... ACHS SC 06/08/17 21:00 07/08/17 20:59 06/09/17 12:57 8 UNITS Glucose (Glucose 40% Gel) 15-30 GRAMS 15 GRAMS... UD PRN PO 06/08/17 19:15 07/08/17 19:14 Glucose (Glucose Chew Tab) 4-8 Tablets 4 Tabl... UD PRN PO 06/08/17 19:15 07/08/17 19:14 Dextrose (Dextrose 50% 50ML Syringe) 25-50ML OF 50% DW IV FOR... UD PRN IV 06/08/17 19:15 07/08/17 19:14 Glucagon (Glucagon Inj) 1 mg UD PRN SQ 06/08/17 19:15 07/08/17 19:14 Buspirone HCl (BusPAR TAB) 7.5 mg BID PO 06/08/17 21:00 07/08/17 20:59 06/09/17 09:17 7.5 MG Albuterol (Ventolin Hfa Inhaler) 2 puffs QID PRN INH 06/08/17 19:45 07/08/17 19:44 Aspirin (Ecotrin Tab) 81 mg PM PO 06/09/17 21:00 07/09/17 20:59 Citalopram Hydrobromide (celeXA TAB) 40 mg DAILY PO 06/09/17 09:00 07/09/17 08:59 06/09/17 09:18 40 MG Fluticasone Propionate (Flovent Hfa 220MCG Inhaler) 2 puffs BID INH 06/08/17 21:00 07/08/17 20:59 06/09/17 09:18 2 PUFFS Lisinopril (Zestril Tab) 5 mg DAILY PO 06/09/17 09:00 07/09/17 08:59 06/09/17 09:18 5 MG Magnesium Oxide (Mag-Ox Tab) 800 mg QPM PO 06/08/17 21:00 07/08/17 20:59 06/08/17 22:19 800 MG Meloxicam (Mobic Tab) 15 mg DAILY PRN PO 06/08/17 19:45 07/08/17 19:44 Metoprolol Succinate (Toprol Xl Tab) 25 mg QPM PO 06/08/17 21:00 07/08/17 20:59 06/08/17 22:19 25 MG Simvastatin (Zocor Tab) 20 mg QPM PO 06/08/17 21:00 07/08/17 20:59 06/08/17 22:20 20 MG Acetaminophen (Tylenol Tab) 650 mg Q4H PRN PO 06/08/17 19:45 07/08/17 19:44 06/09/17 05:44 650 MG Ondansetron HCl (Zofran Inj) 4 mg Q6H PRN IV 06/08/17 19:45 07/08/17 19:44
--- NOTE | 2017-06-09 16:35 | Discharge Instructions ---
Discharge Instructions Date of Service Jun 09, 2017. Admission Reason for Admission: Chest Pain . Discharge Discharge Diagnosis / Problem: PVC's, no indication of myocardial infarction or pulmonary embolism Discharge Goals Goal(s): Decrease discomfort Activity Recommendations Activity Limitations: resume your previous activity . Instructions / Follow-Up Instructions / Follow-Up APPOINTMENTS: FAMILY MEDICINE 06/15/2017 11:20 AM Kailash Soto MD OTHER INSTRUCTIONS: Stimulants like caffeine, nicotine, decongestants can cause or worsen PVC's. Try to avoid them if possible. If you continue to have symptoms like lightheadedness or severe palpitations, please ask Dr. Soto to order Holter monitor or cardiac event monitor. Seek medical attention if you have: * temperature above 101 * chest pain or trouble breathing * abdominal pain, nausea, vomiting * diarrhea, dark stools or bloody stools * any unanswered questions or concerns Call 911 if symptoms are severe. Call if you have any questions or problems. My cell # is [phone]. You can also reach a [facility] hospitalist on duty at [facility] 24 hours a day by calling [phone]. Please take good care of yourself. Matias Gill . Current Hospital Diet Patient's current hospital diet: Diabetes Type 2 Diet, AHA Diet (Heart Healthy) Discharge Diet Recommended Diet: AHA Diet (Heart Healthy), Diabetes Type 2 Diet Pending Studies Studies pending at discharge: no Laboratory Results Hemoglobin A1c Test 06/09/17 02:37 Range/Units Estimated Average Glucose 212 mg/dl Hemoglobin A1c 9.0 H 4.5-5.6 % Lipid Panel Test 06/09/17 05:33 Range/Units Triglycerides Level 198 H 0-150 mg/dl Cholesterol Level 140 0-200 mg/dl HDL Cholesterol 40 mg/dl Cholesterol/HDL Ratio 3.5 LDL Cholesterol, Calculated 60 mg/dl Medical Emergencies . Who to Call and When: Medical Emergencies: If at any time you feel your situation is an emergency, please call 911 immediately. . Non-Emergent Contact Non-Emergency issues call your: Primary Care Provider, Hospital Doctor . . "Provider Documentation" section prepared by Matias Gill. . VTE Core Measure Inpt VTE Proph given/why not?: Unfractionated heparin SQ
[2017-06-09] MEDS ORDERED: ASPIRIN 81 MG ECTAB PO SCH (21:00)
--- NOTE | 2017-06-14 08:19 | Discharge Summary ---
Discharge Summary Date of Service Jun 14, 2017. Discharge Summary Admission Date: Jun 08, 2017 at 19:02 Discharge Date: Jun 09, 2017 Discharge Disposition: Home Principal Diagnosis: chest pain . Secondary Diagnoses/Problems: Chronic Medical Problems: (1) Asthma Status: Chronic (2) Diabetes mellitus, type II Status: Chronic (3) HLD (hyperlipidemia) Status: Chronic (4) HTN (hypertension) Status: Chronic (5) Lumbar spinal stenosis Status: Chronic (6) Mood disorder Status: Chronic (7) JERMAINE on CPAP Status: Chronic (8) Osteoarthritis Status: Chronic (9) Umbilical hernia Status: Chronic Surgical Problems: (1) S/P TKR (total knee replacement) Status: Chronic (2) Status post cardiac catheterization Permanent Comment: 02/10/16 GM - normal coronaries Status: Chronic . Procedures: cardiac monitoring venous duplex lower extremities V/Q scan echocardiogram dobutamine stress echo . Consultations: Cardiology . Medication Reconciliation Continued Medications: Acetaminophen (Tylenol) 325 Mg Tab 2 TABS PO Q4 PRN for Pain, TAB Albuterol (Ventolin) Inh 2 PUFFS INH QID PRN for prn, 0 Refills Ascorbic Acid (Vitamin C *) 500 Mg Tab 1000 MG PO BID, 0 Refills Aspirin (Aspirin EC Low Dose) 81 Mg Ectab 1 TAB PO PM Canagliflozin (Invokana) 100 Mg Tab 100 MG PO DAILY Citalopram (Citalopram Hydrobromide) 40 Mg Tab 1 TAB PO DAILY for 90 Days, #90 TAB 3 Refills Fluticasone Propionate (Flovent Hfa) 120 Puffs/93945 Mcg Aero 2 PUFFS PO BID Ibuprofen (Advil) 200 Mg Tab 400 MG PO Q4 PRN for Pain, TAB Insulin Glargine (Lantus Solostar Pen) 100 Unit/ Inj 30 UNITS SC HS for 90 Days, #15 ML 3 Refills Insulin Glulisine (Apidra Solostar) 100 Unit/ Inj SC DIRECTED sliding scale Insulin Glulisine (Apidra) 100 Unit/Ml Inj 6 UNITS SC QAM Insulin Glulisine (Apidra) 100 Unit/Ml Inj 10 UNITS SC LUNCH,SUPPER Lisinopril (Lisinopril) 5 Mg Tab 1 TAB PO DAILY Magnesium Oxide (Mag-Ox) 400 Mg Tab 2 TABS PO QPM, TAB Meloxicam (Mobic) 15 Mg Tab 15 MG PO DAILY PRN for Pain, TAB Metformin Hcl (Glucophage) 1,000 Mg Tab 1000 MG PO BID, TAB Metoprolol Succinate (Toprol Xl) 25 Mg Tab 25 MG PO QPM, TAB Multivitamin (Multivitamin) Tab 1 TAB PO QAM, 0 Refills Simvastatin (Zocor) 20 Mg Tab 20 MG PO QPM, 0 Refills [potassium] () 99 MG PO QPM may take 2 TABS prn FOR CRAMPING Admission Information HPI (per Admitting provider): This is a 51yo M with a PMH of HTN, DM II, HLD, depression/anxiety, JERMAINE (with cpap) and other medical problems listed below who presents with a burning sensation in his chest beginning this afternoon. 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 Describes it as a warm, burning feeling that would last for a minute at a time, resolve and then occur again. Associated with nausea, lightheadedness and palpitations. Denies any pressure, sharp pain or diaphoresis. Was brought to the ED for further evaluation. States that he has experienced both panic attacks and GERD in the past and that this event felt like a more severe version of a panic attack. Endorses feeling stressed lately because of work. Underwent a cardiac work-up in 2008, which was negative. Dobutamine stress test was negative for inducible ischemia and cardiac cath performed in [facility] for persistent symptoms showed normal coronary arteries. Was evaluated again in 2015 for chest pain and underwent exercise stress test. No evidence of inducible ischemia but was a sub-optimal test as it was stopped early 2/2 leg fatigue. Echo from Apr 2016 with normal LV function, EF of 60-65%. + family history of heart disease. Was seen in late May by PCP for treatment of sinusitis and PNA. Has completed a course of azithromycin and was prescribed a flovent inhaler he has been using twice a day. States that his cough and SOB have improved but he still has not "felt like himself" for a few days now, with a dull frontal headache and diarrhea. Denies any sick contacts. . Physical Exam (per Admitting): General Appearance: WD/WN, no apparent distress, + obese, + pertinent finding (Sitting upright, breathing comfortably on room air. ) Head: normocephalic, atraumatic Eyes: normal inspection, PERRL, sclerae normal ENT: normal ENT inspection, hearing grossly normal, pharynx normal (moist mucous membranes ) Neck: supple, thyroid normal, no JVD, trachea midline Respiratory/Chest: chest non-tender, lungs clear, normal breath sounds, no respiratory distress, no accessory muscle use Cardiovascular: regular rate, rhythm, no murmur, normal peripheral pulses Abdomen/GI: non tender, soft, no organomegaly, + pertinent finding ( Multiple ecchymoses from recent fall, insulin injections ) Back: normal inspection Extremities/Musculoskelatal: normal inspection, no calf tenderness, no pedal edema Neurologic/Psych: no motor/sensory deficits, alert, normal mood/affect, oriented x 3 Skin: normal color, warm/dry Hospital Course CHEST PAIN Serial troponins negative. D-dimer elevated. Venous duplex lower extremities negative for DVT. V/Q scan low probability for pulmonary embolism. Cardiology consulted. Rest echo showed normal LV wall motion and systolic function. No stress-induced ischemia on dobutamine stress echo. VENTRICULAR ECTOPY Frequent PVC's, sometimes bigeminal. K+, Mg++, TSH OK. LVEF normal. No stress-induced ischemia on dobutamine stress echo. Patient consumes caffeinated beverages and uses decongestants. Advised to avoid stimulants. Continue metoprolol (dose not increased because of bradycardia). Patient concerned that ventricular ectopy might be worrisome. He was reassured that ventricular ectopy of this nature is usually benign. Consider outpatient Holter or cardiac event monitor if symptomatic palpitations continue. HYPERTENSION Continue metoprolol and lisinopril. SLEEP APNEA Continue CPAP. DM TYPE 2 Not very well-controlled. Hgb A1C 9.0. FBS 145. Discharge on usual regimen with ongoing outpatient support / education. VTE PROPHYLAXIS SQ heparin. Ambulating. DISPOSITION Expected discharge to home. Family Medicine follow-up with Dr. Soto. . Discharge Instructions Date of Service Jun 09, 2017. Admission Reason for Admission: Chest Pain . Discharge Discharge Diagnosis / Problem: PVC's, no indication of myocardial infarction or pulmonary embolism Discharge Goals Goal(s): Decrease discomfort Activity Recommendations Activity Limitations: resume your previous activity . Instructions / Follow-Up Instructions / Follow-Up APPOINTMENTS: FAMILY MEDICINE 06/15/2017 11:20 AM Kailash Soto MD OTHER INSTRUCTIONS: Stimulants like caffeine, nicotine, decongestants can cause or worsen PVC's. Try to avoid them if possible. If you continue to have symptoms like lightheadedness or severe palpitations, please ask Dr. Soto to order Holter monitor or cardiac event monitor. Seek medical attention if you have: * temperature above 101 * chest pain or trouble breathing * abdominal pain, nausea, vomiting * diarrhea, dark stools or bloody stools * any unanswered questions or concerns Call 911 if symptoms are severe. Call if you have any questions or problems. My cell # is [phone]. You can also reach a [facility] hospitalist on duty at [facility] 24 hours a day by calling [phone]. Please take good care of yourself. Matias Gill . Current Hospital Diet Patient's current hospital diet: Diabetes Type 2 Diet, AHA Diet (Heart Healthy) Discharge Diet Recommended Diet: AHA Diet (Heart Healthy), Diabetes Type 2 Diet Pending Studies Studies pending at discharge: no Laboratory Results Hemoglobin A1c Test 06/09/17 02:37 Range/Units Estimated Average Glucose 212 mg/dl Hemoglobin A1c 9.0 H 4.5-5.6 % Lipid Panel Test 06/09/17 05:33 Range/Units Triglycerides Level 198 H 0-150 mg/dl Cholesterol Level 140 0-200 mg/dl HDL Cholesterol 40 mg/dl Cholesterol/HDL Ratio 3.5 LDL Cholesterol, Calculated 60 mg/dl Medical Emergencies . Who to Call and When: Medical Emergencies: If at any time you feel your situation is an emergency, please call 911 immediately. . Non-Emergent Contact Non-Emergency issues call your: Primary Care Provider, Hospital Doctor . . "Provider Documentation" section prepared by Matias Gill. . VTE Core Measure Inpt VTE Proph given/why not?: Unfractionated heparin SQ .
== END 2017-06-09 17:25 | disposition home or self-care (01) ==
LOC: EDBD 14:38 → C.EDC 14:40 → C.2T 19:02 → ENRESERV 20:24
PROVIDERS: ADMIT Family Medicine; ATTEND Hospitalist
DX: R07.9 Chest pain, unspecified (principal); E11.9 Type 2 diabetes mellitus without complications; I10 Essential (primary) hypertension; E78.5 Hyperlipidemia, unspecified; J45.909 Unspecified asthma, uncomplicated; G47.33 Obstructive sleep apnea (adult) (pediatric); M19.90 Unspecified osteoarthritis, unspecified site; Z96.659 Presence of unspecified artificial knee joint; Z79.4 Long term (current) use of insulin; Z79.899 Other long term (current) drug therapy; Z79.82 Long term (current) use of aspirin; Z80.9 Family history of malignant neoplasm, unspecified; Z83.3 Family history of diabetes mellitus; Z82.49 Family history of ischemic heart disease and other diseases of the circulatory system; Z84.1 Family history of disorders of kidney and ureter

== ENCOUNTER 2019-01-13 08:23 | Inpatient (IN) ==
--- NOTE | 2019-01-04 14:26 | History and Physical Report ---
DATE OF ADMISSION: 01/04/2019 CHIEF COMPLAINT: Back pain, lower extremity difficulty and paresthesias. HISTORY OF PRESENT ILLNESS: Juma is a delightful, I remember him from years ago. He had reconstructive spine surgery L4-L5. He has gone on to develop some stenosis at L3-L4, large herniation, instability, fortunately no bowel and bladder incontinence. We tried conservative measures. He has failed. He is miserable. We have offered him surgical intervention because of the associated weakness. PAST MEDICAL HISTORY: Positive for hypertension, asthma, diabetes, problems with anesthesia. PAST SURGICAL HISTORY: Lumbar spine surgery, bilateral knee surgery. ALLERGIES: CECLOR, AMOXICILLIN. FAMILY HISTORY: Diabetes. SOCIAL HISTORY: He is with 3 children. No alcohol, tobacco. Active lifestyle. REVIEW OF SYSTEMS: Twelve system review no fevers, sweats, chills. Ear, nose and throat negative. Denies chest pain, palpitations. Denies asthma, wheezing, shortness of breath. Denies nausea, vomiting, urgency, frequency, dysuria. Admits to back pain, lower extremity difficulty, paresthesias, numbness and tingling. OBJECTIVE: GENERAL: He is 5 feet 10 inches. He is 265 pounds. He is alert, oriented. VITAL SIGNS: Blood pressure 130/80, pulse 80s, respiration 16. HEENT: Pupils react to light and accommodation. Ear, nose and throat clear. CARDIAC: Normal S1, S2, no S3. LUNGS: Clear to auscultation. No rales, rhonchi, wheezing. ABDOMEN: Soft, nontender. Slightly enlargement. No pain. NEUROLOGIC: Intact, 5/5 strength. Slight weakness of his quadriceps and slight decreased reflexes. His x-rays demonstrate a large herniation L3-L4 and stenosis at L3-L4. PLAN: Includes lumbar spine surgery, removal of mary carmen L4-L5, decompression and fusion L3-L4 of lumbar spine.
--- NOTE | 2019-01-04 14:41 | PAT Medication Instructions ---
Medication Instructions Date of Service January 04, 2019 Home Medications acetaminophen 650 mg PO Q6H PRN albuterol sulfate 2 puff INHALATION Q6H PRN ascorbic acid (vitamin C) 1,000 mg PO QPM citalopram 40 mg PO QAM empagliflozin [Jardiance] 10 mg PO QAM fluticasone propionate 1 puff INHALATION BID PRN ibuprofen 400 mg PO Q4 PRN insulin glargine [Lantus Solostar U-100 Insulin] 30 unit SUBCUT HS insulin glulisine U-100 [Apidra U-100 Insulin] 1 sliding scale dose SUBCUT USEAS DIRECTD insulin glulisine U-100 [Apidra U-100 Insulin] 6 sliding scale dose SUBCUT ACHS insulin glulisine U-100 [Apidra U-100 Insulin] 10 unit SUBCUT lisinopril 5 mg PO QPM metformin 1,000 mg PO BID metoprolol succinate 25 mg PO QPM multivitamin 1 tab PO QAM potassium 99 mg PO QPM simvastatin 20 mg PO PM ASK your surgeon for instructions ibuprofen 400 mg PO Q4 PRN DO NOT take the morning of surgery ascorbic acid (vitamin C) 1,000 mg PO QPM empagliflozin [Jardiance] 10 mg PO QAM insulin glulisine U-100 [Apidra U-100 Insulin] 1 sliding scale dose SUBCUT USEASDIRECTD insulin glulisine U-100 [Apidra U-100 Insulin] 6 sliding scale dose SUBCUT ACHS insulin glulisine U-100 [Apidra U-100 Insulin] 10 unit SUBCUT metformin 1,000 mg PO BID multivitamin 1 tab PO QAM Take morning of surgery With a small sip of water, OTHERWISE NOTHING TO EAT OR DRINK AFTER MIDNIGHT: acetaminophen 650 mg PO Q6H PRN (okay to take up to 4 hours prior to surgery if needed) albuterol sulfate 2 puff INHALATION Q6H PRN (use if needed; please bring with you to hospital day of surgery if possible) citalopram 40 mg PO QAM fluticasone propionate 1 puff INHALATION BID PRN (if needed) Take evening before surgery acetaminophen 650 mg PO Q6H PRN (if needed) albuterol sulfate 2 puff INHALATION Q6H PRN (if needed) ascorbic acid (vitamin C) 1,000 mg PO QPM fluticasone propionate 1 puff INHALATION BID PRN (if needed) insulin glargine [Lantus Solostar U-100 Insulin] 30 unit SUBCUT HS insulin glulisine U-100 [Apidra U-100 Insulin] 1 sliding scale dose SUBCUT USEASDIRECTD insulin glulisine U-100 [Apidra U-100 Insulin] 6 sliding scale dose SUBCUT ACHS insulin glulisine U-100 [Apidra U-100 Insulin] 10 unit SUBCUT lisinopril 5 mg PO QPM metformin 1,000 mg PO BID metoprolol succinate 25 mg PO QPM potassium 99 mg PO QPM simvastatin 20 mg PO PM Other Notes If you have any questions please call us at [phone] or [phone] or [phone] or [phone]
--- NOTE | 2019-01-05 08:26 | Anesthesiology Consultation ---
Date of Service January 05, 2019 Assessment & Plan (1) Encounter for pre-operative examination: - Check BSG AM DOS - Hx glidescope intubation: L4-L5 decompression/fusion: 02/05/15: Glidescope#4, Grade view 1, ETT 8.0 at [facility] Chart Review Chart Review: Acceptable Risk for Surgery (pending preop testing (labs, EKG)) and Patient seen in Pre Admission Testing Teaching & Discussion Pre-Anesthesia Teaching/Discussion Notes: Instructed NPO after midnight before surgery,except medications with 15 cc of water. Medication instructions provided according to the PAT guidelines. History Surgery Operation Date: 01/13/19 07:30 Proposed Procedures p L3-L4, L4-L5 Decompression and Fusion, L4-L5 Ludin Removal; - DO tricia Grayson Left Knee Revision of Scar - Matias Pandya DO Height/Weight Height: 5 ft 10 in Weight: 127.3 kg Allergies Allergy/AdvReac Type Severity Reaction Status Date / Time amoxicillin Allergy Intermediate hives Verified 12/29/18 12:04 Cephalosporins Allergy Intermediate hives Verified 12/29/18 12:04 Penicillins Allergy Intermediate hives Verified 12/29/18 12:04 cefaclor Allergy Unknown HIVES Verified 12/29/18 12:04 Iodinated Contrast- Oral and AdvReac Intermediate vomiting Verified 12/29/18 12:04 IV Dye Medications Home Medications Medication Instructions Recorded Confirmed Last Taken acetaminophen 650 mg PO Q6H PRN 12/29/18 12/29/18 Unknown albuterol sulfate 2 puff INHALATION Q6H PRN 12/29/18 12/29/18 Unknown ascorbic acid (vitamin C) 1,000 mg PO QPM 12/29/18 12/29/18 Unknown citalopram 40 mg PO QAM 12/29/18 12/29/18 Unknown empagliflozin [Jardiance] 10 mg PO QAM 12/29/18 12/29/18 Unknown fluticasone propionate 1 puff INHALATION BID PRN 12/29/18 12/29/18 Unknown ibuprofen 400 mg PO Q4 PRN 12/29/18 12/29/18 Unknown insulin glargine [Lantus Solostar 30 unit SUBCUT HS 12/29/18 12/29/18 Unknown U-100 Insulin] insulin glulisine U-100 [Apidra 1 sliding scale dose SUBCUT 12/29/18 12/29/18 Unknown U-100 Insulin] USEASDIRECTD insulin glulisine U-100 [Apidra 6 sliding scale dose SUBCUT ACHS 12/29/18 12/29/18 Unknown U-100 Insulin] insulin glulisine U-100 [Apidra 10 unit SUBCUT BID 12/29/18 12/29/18 Unknown U-100 Insulin] lisinopril 5 mg PO QPM 12/29/18 12/29/18 Unknown metformin 1,000 mg PO BID 12/29/18 12/29/18 Unknown metoprolol succinate 25 mg PO QPM 12/29/18 12/29/18 Unknown multivitamin 1 tab PO QAM 12/29/18 12/29/18 Unknown potassium 99 mg PO QPM 12/29/18 12/29/18 Unknown simvastatin 20 mg PO PM 12/29/18 12/29/18 Unknown Past Medical History Medical History History of difficult intubation Hx glidescope intubation: L4-L5 decompression/fusion: 02/05/15: Glidescope#4, Grade view 1, ETT 8.0 at [facility] Asthma stable Chronic back pain Diabetes mellitus, type 2 History of kidney stones Hx of gastroesophageal reflux (GERD) controlled Hx of migraine headaches Hyperlipidemia Hypertension Morbid obesity Sleep apnea CPAP Exercise / Class Metabolic Activity II 4-5 Yardwork/Stairs/Walk up hill Past Family History Family History Father Family history of diabetes mellitus Brother Family history of diabetes mellitus Past Surgical History Surgical History Status post cardiac catheterization 2016- "normal coronaries" per records History of back surgery History of total left knee replacement History of total right knee replacement Hx of colonoscopy Hx of umbilical hernia repair MULTIPLE Past Anesthesia History No Family Hx of Anesthesia Complications and Other "Slow to wake"- no known hx reintubation. History of PONV No Hx of PONV and No Hx of Motion Sickness Social History Smoking Status: Never smoker Do You Dip or Chew Tobacco: No Hx Alcohol Use: Yes Alcohol type: beer, wine and hard liquor alcohol intake frequency: holidays/special occasions only Hx Substance Use: No Review of Systems Reflux controlled. Patient denies chest pain, shortness of breath, dyspnea on exertion, cough, wheezing, palpitations. Physical Exam Vital Signs VITALS BP 124/71 P 81 TEMP 98.6 SP02 94%RA RESP 18 PHYSICAL Full neck and c-spine range of motion. Full TMJ range of motion. TMD 3.5 finger breaths Mallampati Score 2 Dentition: chipped molars per patient Lungs: clear throughout to auscultation Cardiac: regular rate and rhythm, no murmurs noted Spine: normal Carotid arteries: negative bruit Extremities: no edema Very short, thick neck Testing Stress Test Date: 06/09/17 Type: DSE Normal exercise stress echocardiogram. No echocardiographic or ECG evidence of myocardial ischemia having achieved heart rate adequate for diagnostic purposes. The stress ECG response was negative for ischemia. Frequent unifocal PVCs were noted at rest and low level of pharmacologic stress that decreased in frequency at peak heart rates and returned in the post stress recovery interval. LVEF = 55-60%. The right ventricle is mildly dilated. 85% MPHR.
[2019-01-05 10:19] LABS: Partial Thromboplastin Ratio 0.9; Partial Thromboplastin Time 24.1 Seconds (21.0-31.0); Prothrombin Time 10.1 Seconds (9.0-12.0)
[2019-01-05 10:26] LABS: Basophils # (auto) 0.02 K/uL (0-0.2); Basophils % (auto) 0.3 %; Eosinophils % (auto) 1.6 %; Hematocrit (blood only) 45.6 % (42-52); Hemoglobin 15.3 g/dL (14.0-18.0); Immature Granulocytes # (auto) 0.02 K/uL (0.00-0.02); Immature Granulocytes % (auto) 0.3 %; Lymphocytes # (auto) 1.21 K/uL (1.2-3.4); Lymphocytes % (auto) 19.8 %; Mean Corpuscular Hemoglobin 29.8 pg (25-34); Mean Corpuscular Hgb Conc 33.6 g/dL (32-36); Mean Corpuscular Volume 88.9 fL (80-100); Mean Platelet Volume 9.9 fL (7.4-10.4); Monocytes # (auto) 0.49 K/uL (0.11-0.59); Neutrophils # (auto) 4.28 K/uL (1.4-6.5); Platelet Count 195 K/uL (130-400); RDW Standard Deviation 45.7 fL (36.4-46.3); Red Blood Count 5.13 M/uL (4.7-6.1); White Blood Count 6.12 K/uL (4.8-10.8)
[2019-01-05 11:10] LABS: Estimated Average Glucose 223 mg/dl; Hemoglobin A1C 9.4 % (4.5-5.6)
[2019-01-05 11:38] LABS: BUN Creatinine Ratio 20.5 (10-20); Calcium 8.4 mg/dl (8.5-10.1); Creatinine Clr Calc Pharmacy 112.4 ml/min; Est GFR (African American) 96.3; Est GFR (Non-African American) 83.1; Potassium 4.1 mmol/L (3.5-5.1)
--- NOTE | 2019-01-12 19:53 | History and Physical Report ---
DATE OF ADMISSION: 01/13/2019 He is scheduled for a PLIF procedure L3-L4 and L4-L5 lumbar spine. HISTORY OF PRESENT ILLNESS: Juma is delightful, he is 53 years of age. He is compromised with lower extremities neurologically, difficulty walking, standing, getting comfortable. He had surgery a few years ago, we did a nice job for him, now he has developed a disc herniation, stenosis at L3-L4 and L4-L5 level of the lumbar spine. PAST MEDICAL HISTORY: Positive for heart disease, diabetes, hypertension, obesity, usual childhood diseases. PAST SURGICAL HISTORY: Includes spine surgery, right knee replacement. ALLERGIES: CECLOR, AMOXICILLIN, PENICILLIN. SOCIAL HISTORY: . No alcohol or tobacco. Active lifestyle. REVIEW OF SYSTEMS: Twelve system review is positive for weight gain. Ear, nose and throat negative. No chest pain, palpitations. No asthma, wheezing. No shortness of breath. He denies any memory loss or confusion. He has joint pain, stiffness and muscle pain and diabetes. MEDICATIONS: Denied. OBJECTIVE: GENERAL: He is alert, oriented. He is 5 feet 9 inches, he is 250 pounds. He is alert, oriented. VITAL SIGNS: Blood pressure 130/80, pulse 80, respiratory rate 16. HEENT: Pupils react to light and accommodation. Ear, nose and throat clear. CARDIAC: Normal S1, S2, no S3, no ectopy. LUNGS: Clear to auscultation. ABDOMEN: Soft and nontender. NEUROLOGIC: He has 5/5 strength. No true weakness. EXTREMITIES: He has some pain with straight leg raising, decreased knee jerk reflex on the right hand side. IMAGES: Demonstrate a large herniation L3-L4 and some mild instability L3-L4 and cauda equina compromise. PLAN: Includes a PLIF procedure, L3-L4, L4-L5 lumbar spine and laminectomy.
[~2019-01-13 08:23] MED LIST changes: -ACET-1256 PO; +ACETAMINOPHEN 1,000 MG/100 ML VIAL IV SCH; +ACETAMINOPHEN 500 MG TAB PO SCH; -ALBUAER2 INH; -ASCA500 PO; -CANA1TAB PO; +CEFAZOLIN - ALLERGY NOTED TO ORDERED MEDICATION SCH; +CEFAZOLIN 3000MG 72.5 ML IV SCH; -CITA40TA4 PO; -IBUP-1277 PO; -INSUINJ34 SC; -INSUINJ4 SC; -INSUINJ5 SC; -LISI-461 PO; +LR 15ML/HR IV SCH; -METF-384 PO; -METO-478 PO; -MULT-506 PO; -SIMV20TA2 PO; +SODIUM CHLORIDE 0.9% 1,000 ML IV SCH; -potassium PO
[2019-01-13] MEDS ORDERED: PROPOFOL IV EMULSION 10 MG/ML 20 ML VIAL IV ONE (08:47)
[2019-01-13] MEDS ORDERED: MIDAZOLAM HCL 1 MG/ML 2ML VIAL ONE ×2 (08:47→10:36)
[2019-01-13] MEDS ORDERED: DEXAMETHASONE SOD INJ 4 MG/ML VIAL ONE (08:47)
[2019-01-13] MEDS ORDERED: ROCURONIUM BROMIDE 10 MG/ML 5 ML VIAL ONE ×5 (08:47→13:06)
[2019-01-13] MEDS ORDERED: ONDANSETRON INJ 2 MG/ML 2 ML VIAL ONE (08:47)
[2019-01-13] MEDS ORDERED: fentaNYL citrate 100 MCG/2 ML VIAL ONE (08:47)
[2019-01-13] MEDS ORDERED: LIDOCAINE HCL 2% 2 ML VIAL/AMP(20MG/ML) INFIL ONE (08:47)
[2019-01-13] MEDS ORDERED: KETAMINE HCL INJ 50 MG/ML 10 ML VIAL ONE (08:48)
[2019-01-13] MEDS ORDERED: ATROPINE SULFATE 0.1 MG/ML 10ML SYR IV PRN (09:58)
[2019-01-13] MEDS ORDERED: PROMETHAZINE HCL 12.5 MG in SODIUM CHLORIDE 0.9% 50 ML IV PRN (09:58)
[2019-01-13] MEDS ORDERED: ePHEDrine sulfate 50 MG/ML AMP IV PRN (09:58)
[2019-01-13] MEDS ORDERED: METOCLOPRAMIDE HCL INJ 5 MG/ML 2 ML VIAL IV PRN (09:58)
[2019-01-13] MEDS ORDERED: HYDROmorphone INJ 2 MG/ML SYR/VIAL IV PRN (09:58)
[2019-01-13] MEDS ORDERED: ONDANSETRON INJ 2 MG/ML 2 ML VIAL IV PRN ×2 (09:58→15:44)
[2019-01-13] MEDS ORDERED: fentaNYL citrate 100 MCG/2 ML VIAL IV PRN (09:58)
[2019-01-13] MEDS ORDERED: VANCOMYCIN HCL 1000MG/20ML VIAL ONE (10:27)
[2019-01-13] MEDS ORDERED: BACITRACIN INJ 50,000 UNIT VIAL ONE (10:27)
[2019-01-13] MEDS ORDERED: GELATIN SPONGE SZ 100 ONE ×2 (10:27→13:01)
[2019-01-13] MEDS ORDERED: THROMBIN FOR SOLN 20000 UNIT KIT ONE (10:27)
[2019-01-13] MEDS ORDERED: BUPIVACAINE/EPINEPHRINE 0.5% MPF 1:200,000 30 ML VIAL ONE ×2 (10:27→11:21)
[2019-01-13] MEDS ORDERED: VANCOMYCIN HCL 1 GM/270 ML BAG ONE (10:38)
[2019-01-13] MEDS ORDERED: VANCOMYCIN CONSULT ACTIVE PRN ×2 (10:46→15:44)
--- NOTE | 2019-01-13 10:52 | History & Physical Bridge Note ---
Date of Service January 13, 2019 History & Physical Bridge Note I have examined the patient, reviewed the History & Physical and in the interval since the performance of the History & Physical I have noted the following changes of clinical significance: We will debride and close left knee wound.
[2019-01-13] MEDS ORDERED: HYDROmorphone INJ 2 MG/ML SYR/VIAL ONE (11:50)
[2019-01-13] MEDS ORDERED: LABETALOL HCL IV 5 MG/ML 20ML IV ONE (13:06)
[2019-01-13] MEDS ORDERED: NEOSTIGMINE METHYLSULFATE 5 MG/5 ML SYR ONE (13:08)
[2019-01-13] MEDS ORDERED: GLYCOPYRROLATE 0.2 MG/ML VIAL ONE (13:08)
--- NOTE | 2019-01-13 13:57 | Fluoroscopy Report ---
INTRAOPERATIVE RADIOGRAPH CLINICAL HISTORY: L3-L5 spinal fusion. Fluoroscopy time: 5 seconds. FINDINGS: A single spot fluoroscopic view of the lumbar spine is presented. There has been discectomy at L3-L4 and L4-L5 with evidence of L3-L5 spinal fusion. Interpedicular screws are present at all le vels. Orthopedic hardware appears intact. IMPRESSION: Intraoperative image from L3 -L5 spinal fusion as above. Electronically signed by: Josue Marcos M.D. 01/13/2019 1:56 PM
--- NOTE | 2019-01-13 14:17 | Post Operative Brief Note ---
PG Immediate Post Op with CF Date of Surgery January 13, 2019 Pre & Post Diagnosis Operation Date: 01/13/19 10:40 Pre-Op Diagnosis: L3-L4, L4-L5 stenosis Post-Op Diagnosis: L3-L4, L4-L5 stenosis Procedure Operation Date: 01/13/19 10:40 Actual Procedures p Left Knee Revision of Scar;(Left) - Matias Pandya DO s L3-L4, L4-L5 Decompression and Fusion, L4-L5 Ludin Removal - Matias Pandya DO Surgeon Matias Pandya DO Ethylene Plant Operator nilesh Estimated Blood Loss 500 Findings Consistent with Post-Op Diagnosis Specimens Specimen Description: No specimen collected per surgeon Drains Rico Catheter
--- NOTE | 2019-01-13 14:49 | Operative Report ---
DATE OF OPERATION: 01/13/2019 PREOPERATIVE DIAGNOSES: Large disc herniation and severe stenosis and instability L3-L4 lumbar spine with retrolisthesis. POSTOPERATIVE DIAGNOSES: Large disc herniation and severe stenosis and instability L3-L4 lumbar spine with retrolisthesis. PROCEDURE: 1. Posterior approach lumbar spine decompression laminectomy L3-L4, L4-L5 lumbar spine. 2. Pedicle screw instrumentation, L3, L4, L5 lumbar spine, posterolateral fusion L3-L4 lumbar spine, posterior lumbar interbody fusion L3-L4, lumbar spine. SURGEON: Matias Pandya DO EXHIBIT BUILDER: Malcolm Sinclair PA-C. COMPLICATIONS: Zero. DESCRIPTION OF PROCEDURE: The patient was seen and evaluated in the preoperative area. Initial bridge note provided. He was then brought to the OR. Rico catheter administered, prepped and draped sterile. We made a skin incision, fascial incision. We were able to get down to the lumbar spine and L3-4 and L4-5. We did L3-4 and L4-L5 lumbar spine foraminotomy, complete facetectomies of the involved neural elements. I was pleased with the decompression. We then instrumented the spine. We used the old screws at L4 and L5 and then we were able to instrument L4, L5 and L3 bilaterally. I was pleased with the security. We then did a posterior lumbar interbody fusion. We retracted the dura over on the left hand side, did a complete discectomy. We packed in bone. We packed in the spinal implant by the [employer]. We restored height and restored alignment. We then locked down the construct and the pedicle screws from L3-4 and L4-5. We irrigated thoroughly. We then even bone grafted out over the transverse processes L3-L4 to initiate the spinal 360 fusion. We then irrigated thoroughly, closed fascia to fascia with 1 Vicryl suture over the bone graft over vancomycin powder over Hemovac drain. We used a subcuticular layer of 2-0 Vicryl on the skin. We used hybrid closure of a staple gun and 3-0 nylon. Sterile dressings applied. The patient taken to PACU improved, stable condition. There were no complications. Sponge and needle count correct. IMPLANTS USED: By the [employer]. Bone graft used was the combination of autograft and demineralized bone matrix. I attest to the content of the Intraoperative Record and any orders documented therein. Any exception s are noted below.
--- NOTE | 2019-01-13 14:50 | Operative Report ---
DATE OF OPERATION: 01/13/2019 PREOPERATIVE DIAGNOSIS: Failure of wound closure, left knee. POSTOPERATIVE DIAGNOSIS: Failure of wound closure, left knee. PROCEDURE: Include revision of left knee incision. SURGEON: Matias Pandya DO FOXING CLOSER: Malcolm Sinclair PA-C. COMPLICATIONS: Zero. ANESTHETIC: General and local Marcaine. DESCRIPTION OF PROCEDURE: The patient was brought to the operating room and general intubated anesthetic provided to the patient. Getting ready for the lumbar spinal portion of the procedure, Rico catheter was administered plus Antibiotics administered. I outlined a revision strategy over his left patella. Making an elliptical type incision. I debrided the scar tissue. I debrided necrotic tissue. I irrigated thoroughly, was able to close end to end with 3-0 nylon suture. Prior to this, I used 2-0 Vicryl suture. I was very pleased with the approximation of the skin. I think will go on with good healing. COMPLICATIONS: Zero. BLOOD LOSS: 5 mL. I attest to the content of the Intraoperative Record and any orders documented therein. Any exception s are noted below.
--- NOTE | 2019-01-13 15:04 | Anesthesiology Progress Note ---
Date of Service January 13, 2019 Anesthesia Post Procedure Vital Signs Vital Signs: Temp Pulse Pulse Resp BP Pulse Ox 01/13/19 15:00 97 H 15 164/92 H 94 01/13/19 14:50 36.7 C 99 H 16 145/89 H 94 01/13/19 14:40 102 H 16 179/99 H 95 01/13/19 14:30 82 16 129/92 96 01/13/19 14:22 36.3 C L 85 15 140/90 96 01/13/19 09:12 37 C 89 20 155/96 H 94 Pain Intensity Lower Back: Pain Intensity: 5 Transfer of Care Handoff Completed per policy Notes Mental Status: alert / awake / arousable and participated in evaluation Patient Amnestic to Procedure: Yes Nausea / Vomiting: adequately controlled Pain: adequately controlled Airway Patency, RR, SpO2: stable & adequate BP & HR: stable & adequate Hydration State: stable & adequate Anesthetic Complications: no major complications apparent
[2019-01-13] MEDS ORDERED: MAGNESIUM HYDROXIDE SUSP 30 ML UDC PO PRN (15:44)
[2019-01-13] MEDS ORDERED: NALOXONE HCL 0.4 MG/1 ML VIAL/CARP IV PRN (15:44)
[2019-01-13] MEDS ORDERED: HYDROmorphone INJ 0.5 MG/0.5 ML SYR IV PRN (15:44)
[2019-01-13] MEDS ORDERED: FLUTICASONE HFA 220 MCG INHALER INH PRN (15:44)
[2019-01-13] MEDS ORDERED: bisacodyL 10 MG SUPP PR PRN (15:44)
[2019-01-13] MEDS ORDERED: ONDANSETRON 4 MG TAB PO PRN (15:44)
[2019-01-13] MEDS ORDERED: SOD PHOSPHATE/SOD BIPHOSPHATE ENEMA 132 ML BTL PR PRN (15:44)
[2019-01-13] MEDS ORDERED: ACETAMINOPHEN 1,000 MG/100 ML VIAL IV PRN (15:44)
[2019-01-13] MEDS ORDERED: DO NOT ADMINISTER FLU VACCINE PRN (15:44)
[2019-01-13] MEDS ORDERED: DO NOT ADMINISTER PNEUMOCOCCAL VACCINE PRN (15:44)
[2019-01-13] MEDS ORDERED: PHARMACY GLYCEMIC MGMT CONSULT PRN (15:52)
[2019-01-13] MEDS ORDERED: INSULIN GLARGINE SOLOSTAR 100 UNITS/ML 3 ML PEN SC STA (16:49)
[2019-01-13] MEDS: SODIUM CHLORIDE 0.9% 1000ML 1,000 ML IV SCH (17:51)
[2019-01-13] MEDS: INSULIN ASPART 100 UNITS/ML 3 ML PEN SC SCH ×2 (18:37→21:30)
[2019-01-13] MEDS: OXYCODONE HCL IR 5 MG TAB (IMMEDIATE RELEASE) PO PRN ×2 (18:40→22:52)
--- NOTE | 2019-01-13 20:35 | Pharmacy Report ---
Glycemic Control Consultation - Date of Service January 13, 2019 - Scope Scope: Glycemic Pharmacist consulted for glycemic control and to write orders per [facility] inpatient glycemic control protocol - Objective Weight: 126.598 kg Accuchecks BSG (last 24hrs): 01/13/19 01/13/19 01/13/19 08:49 14:25 17:07 POC Glucose 174 H 202 H 224 H 01/13/19 01/13/19 20:24 20:26 POC Glucose 339 H* 312 H* HbA1c: Hemoglobin A1c 9.4 % (4.5-5.6) H 01/05/19 08:18 - Recent Pertinent Medications Outpatient Anti-diabetic Regimen: * Lantus 30 units SC HS * Apidra ?6-10 units ACHS plus sliding scale * A1c = 9.4 % 01/05/19 Risk Factors for Insulin Resistance: * Steroids: dexamethasone 4 mg IV x1 * Recent Surgery: POD 0 * Diet: T2DM - Assessment & Plan Assessment & Plan: ASSESSMENT: * 53 yo M POD 0 s/p lumbar decompression/fusion and revision of L knee. Recei karla dexamethasone and BSG post-op BSG 202 mg/dL * Patient receives Lantus at HS at home, but will give early x1 now, weight- based stress 2 total daily dose estimate. Will add supplemental Lantus to in crease to weight-based stress 3 total daily estimate overnight * Novolog parameters between moderate and severe stress PLAN FOR INPATIENT GLYCEMIC CONTROL: * Basal insulin * Lantus 40 units SQ x1 with additional 10-20 units @ 0000 based on BSG * Bolus insulin * NovoLog per scale ACHS or Q6hrs while NPO * Goal Range: Low 110 mg/dL - High 140 mg/dL * Correction Factor: 20 mg/dL/unit * Nutritional / Prandial insulin per carb ratio of 1 unit per 6 grams CHO consumed * Please note that the plan above was derived based on current level of insulin resistance and hospital stress. These recommendations are appropriate for inpatient admission only. Plan of care upon discharge will need to be reassessed to avoid potential outpatient hypo/hyperglycemia. Thank you.
[2019-01-13] MEDS ORDERED: SIMVASTATIN 20 MG TAB PO SCH (21:00)
[2019-01-13] MEDS ORDERED: INSULIN GLARGINE SOLOSTAR 100 UNITS/ML 3 ML PEN SC ONE ×2 (21:00)
[2019-01-13] MEDS ORDERED: DOCUSATE SODIUM/SENNA 50/8.6MG TAB PO SCH (21:00)
[2019-01-13] MEDS ORDERED: NON-FORMULARY MEDICATION (Potassium 99 MG) PO SCH (21:00)
[2019-01-13] MEDS ORDERED: METOPROLOL SUCC 25MG EXT REL TAB PO SCH (21:00)
[2019-01-13] MEDS ORDERED: lisinopriL 5 MG TAB PO SCH (21:00)
[2019-01-14] MEDS: INSULIN ASPART 100 UNITS/ML 3 ML PEN SC SCH ×4 (01:02→13:09)
[2019-01-14] MEDS ORDERED: VANCOMYCIN HCL 2,000 MG in SODIUM CHLORIDE 0.9% 500 ML IV SCH (02:00)
[2019-01-14] MEDS: OXYCODONE HCL IR 5 MG TAB (IMMEDIATE RELEASE) PO PRN ×3 (03:27→11:36)
[2019-01-14 05:19] LABS: Basophils # (auto) 0.01 K/uL (0-0.2); Basophils % (auto) 0.1 %; Eosinophils # (auto) 0.01 K/uL (0-0.5); Eosinophils % (auto) 0.1 %; Hematocrit (blood only) 40.7 % (42-52); Immature Granulocytes # (auto) 0.03 K/uL (0.00-0.02); Immature Granulocytes % (auto) 0.3 %; Lymphocytes # (auto) 1.42 K/uL (1.2-3.4); Lymphocytes % (auto) 13.3 %; Mean Corpuscular Hemoglobin 28.7 pg (25-34); Mean Corpuscular Hgb Conc 31.9 g/dL (32-36); Mean Corpuscular Volume 89.8 fL (80-100); Mean Platelet Volume 9.4 fL (7.4-10.4); Monocytes # (auto) 1.41 K/uL (0.11-0.59); Monocytes % (auto) 13.3 %; Neutrophils # (auto) 7.76 K/uL (1.4-6.5); Neutrophils % (auto) 72.9 %; Platelet Count 200 K/uL (130-400); RDW Coefficient of Variation 14.4 % (11.5-14.5); Red Blood Count 4.53 M/uL (4.7-6.1); White Blood Count 10.64 K/uL (4.8-10.8)
[2019-01-14 05:45] LABS: BUN Creatinine Ratio 14.4 (10-20); Calcium 8.1 mg/dl (8.5-10.1); Est GFR (African American) 103.6; Est GFR (Non-African American) 89.4; Potassium 4.6 mmol/L (3.5-5.1)
[2019-01-14] MEDS ORDERED: VANCOMYCIN HCL 1,000 MG/270 ML BAG IV SCH (06:00)
[2019-01-14] MEDS: SODIUM CHLORIDE 0.9% 1000ML 1,000 ML IV SCH (06:06)
[2019-01-14] MEDS: IBUPROFEN 200 MG TAB PO PRN ×2 (07:16→11:36)
--- NOTE | 2019-01-14 07:46 | Anesthesiology Progress Note ---
Date of Service January 14, 2019 Anesthesia Post Procedure Vital Signs Vital Signs: Temp Pulse Pulse Pulse Resp BP Pulse Ox 01/14/19 07:32 36.9 C 84 20 120/74 96 01/14/19 04:21 36.8 C 85 16 110/71 94 01/14/19 00:42 37.1 C 91 H 16 116/75 97 01/13/19 21:10 100 H 131/76 01/13/19 19:59 36.6 C 100 H 19 118/72 95 01/13/19 17:44 106 H 20 145/87 H 92 01/13/19 17:16 36.8 C 109 H 22 147/82 H 94 01/13/19 16:49 36.7 C 114 H 17 135/86 95 01/13/19 16:19 36.8 C 110 H 18 143/87 H 95 01/13/19 15:45 37 C 102 H 12 152/85 H 95 01/13/19 15:30 94 H 14 139/87 95 01/13/19 15:15 99 H 15 161/88 H 95 01/13/19 15:00 97 H 15 164/92 H 94 01/13/19 14:50 36.7 C 99 H 16 145/89 H 94 01/13/19 14:40 102 H 16 179/99 H 95 01/13/19 14:30 82 16 129/92 96 01/13/19 14:22 36.3 C L 85 15 140/90 96 01/13/19 09:12 37 C 89 20 155/96 H 94 Pain Intensity Lower Back: Pain Intensity: 4 Notes Mental Status: alert / awake / arousable and participated in evaluation Nausea / Vomiting: adequately controlled Pain: adequately controlled Airway Patency, RR, SpO2: stable & adequate BP & HR: stable & adequate Hydration State: stable & adequate
[2019-01-14] MEDS ORDERED: CITALOPRAM 40 MG TAB PO SCH (09:00)
[2019-01-14] MEDS ORDERED: MULTIVITAMIN TAB PO SCH (09:00)
[2019-01-14] MEDS ORDERED: INSULIN GLARGINE SOLOSTAR 100 UNITS/ML 3 ML PEN SC ONE ×2 (10:30)
[2019-01-14] MEDS ORDERED: LORazepam 1 MG TAB PO PRN ×2 (10:39→11:42)
--- NOTE | 2019-01-14 12:42 | Discharge Summary ---
Juma is a delightful patient. He had reconstructive spine surgery; he has done well uneventful 24-hour case and stay in the hospital. He did have some anxiety but no chest pain, shortness of breath. No nausea, vomiting. No retention of urine nor confusion. He is improved, stable. He does have elevated blood sugar and A1c; will address that as an outpatient in 10 days. OBJECTIVE: Vital signs are stable. Neurologically intact. Pain controlled. X-rays not indicated. ASSESSMENT: Uneventful stay. Postoperative from lumbar spine reconstruction. PLAN: We will discharge him home later on today, remove his dressing. He has medication for pain and anxiety in his chart and we will get him a followup appointment with his primary care in regard to his A1c.
--- NOTE | 2019-01-18 11:40 | Coding Query ---
DEBRIDEMENT DOCUMENTATION To promote full compliance with coding requirements relating to patient care, physician participation is requested in all cases of job analysis manager uncertainty. Please assist us with the question(s) below: Please place an X in the parenthesis (x). If other, please document the finding: Type of Debridement: ( ) Excisional Debridement- Cutting away necrotic, devitalized tissue or slough to the level of viable tissue using a sharp instrument (i.e. scalpel, scissors, etc.) ( ) Non Excisional Debridement- The removal of necrotic, devitalized tissue or slough by means of scraping, mechanical brushing, flushing, or washing (i.e. irrigation,whirlpool);minor removal of loose fragments. ( ) Other (please specify): Instrument Used: ( ) Scissors ( ) Scalpel ( ) Curette ( ) Other (please specify): Depth of Debridement: ( ) Skin ( ) Skin and Subcutaneous Tissue ( ) Skin, Subcutaneous Tissue and Muscle ( ) Skin, Subcutaneous Tissue, Muscle and Bone ( ) Other (please specify): Please Specify the Size of Debridement in cm2: Thank you Gala HASSAN
--- NOTE | 2019-01-25 10:07 | Operative Report ---
DATE OF OPERATION: 01/13/2019 CODING QUERY DEBRIDEMENT DOCUMENTATION: Type of debridement was excisional debridement, cut away of some necrotic devitalized tissue. Instruments used were scissors and scalpel. The amount of tissue debrided was quite small, less than 2 cm. The depth of debridement was the subcutaneous tissue and some muscle, and the size of debridement was approximately 4 sq cm. I attest to the content of the Intraoperative Record and any orders documented therein. Any exception s are noted below.
== END 2019-01-14 15:01 | disposition home or self-care (01) | DRG 454 ==
LOC: ASU 08:23 → 3E 14:18

== ENCOUNTER 2025-01-23 05:36 | Observation (INO) ==
--- NOTE | 2025-01-16 11:24 | Anesthesiology Consultation ---
Date of Service January 16, 2025 Assessment & Plan (1) Encounter for pre-operative examination: Plan - check BSG am DOS. - Hx glidescope intubation: L4-L5 decompression/fusion: 02/05/15: Glidescope#4, Grade view 1, ETT 8.0 at [facility]. - ER 12/15/24 [facility]: "...CT of the abdomen pelvis demonstrates equivocal cholelithiasis with possible findings suggestive of cholecystitis with ultrasound recommended for correlation. Otherwise wall thickening of the duodenum and hepatic flexure is noted...ultrasound subsequently demonstrates distended gallbladder and mild gallbladder wall thickening...no pericholecystic fluid...no definite ductal dilatation. Upon reevaluation the patient did report feeling improved following IV fluid hydration, IV famotidine, Zofran, IV Ativan, IV APAP. Abdomen was benign...continued to have a negative Kirkpatrick sign. We did discuss option for escalation of care and referral to the hospitalist for admission for further evaluation and management versus close outpatient follow- up. We agreed to proceed with trial of Carafate and p.o. trial which was successful. Given the patient felt improved he did prefer outpatient management at this time..." - semaglutide instructions: Patient informed at PAT visit to stop 7 days prior to surgery-voiced understanding. - Per home assessment nurse on 01/16/25: No known infectious disease contacts, current infectious disease symptoms in past 10 days or COVID positive test result in the past 30 days. Chart Review Chart Review: Acceptable Risk for Surgery and Patient NOT seen in Pre Admission Testing History Surgery Operation Date: 01/23/25 08:35 Proposed Procedures p Laparoscopic Cholecystectomy - Shon Gonsales MD Height/Weight Height: 5 ft 10 in Weight: 108.862 kg Allergies Allergy/AdvReac Type Severity Reaction Status Date / Time amoxicillin Allergy Intermediate hives Verified 01/16/25 10:47 Cephalosporins Allergy Intermediate hives Verified 01/16/25 10:47 Penicillins Allergy Intermediate hives Verified 01/16/25 10:47 cefaclor Allergy Unknown HIVES Verified 01/16/25 10:47 Iodinated Contrast Media AdvReac Intermediate vomiting Verified 01/16/25 10:47 Medications Home Medications Medication Instructions Recorded Confirmed Last Taken albuterol sulfate 90 mcg/actuation 2 puff inhalation QID PRN 01/12/20 01/16/25 Unknown aerosol inhaler Shortness Of Breath Or Wheezing citalopram 40 mg tablet (Celexa) 40 mg PO QAM 01/12/20 01/16/25 06/10/21 insulin aspart U-100 100 unit/mL 0 unit subcut TIDM 01/12/20 01/16/25 06/11/21 08:00 (3 mL) subcutaneous pen (Novolog 15 units FlexPen U-100 Insulin aspart) insulin glargine 100 unit/mL (3 30 unit subcut HS 01/12/20 01/16/25 06/10/21 mL) subcutaneous pen (Lantus Solostar U-100 Insulin) meloxicam 15 mg tablet (Mobic) 15 mg PO QAM 01/12/20 01/16/25 06/11/21 metoprolol succinate 25 mg 25 mg PO QAM 01/12/20 01/16/25 06/10/21 tablet,extended release 24 hr (Toprol XL) multivitamin 1 tab PO QAM 01/12/20 01/16/25 06/11/21 atorvastatin 20 mg tablet 20 mg PO HS 06/26/22 01/16/25 Unknown acetaminophen 325 mg capsule 325 mg PO QID PRN Pain 10/23/23 01/16/25 Unknown lorazepam 1 mg tablet (Ativan) 1 mg PO DAILY PRN Anxiety 10/23/23 01/16/25 Unknown magnesium chloride 70 mg 70 mg PO DAILY 10/23/23 01/16/25 Unknown (magnesium chloride) tablet,delayed release potassium citrate 99 mg capsule 0 mg PO DAILY 10/23/23 01/16/25 Unknown riboflavin (vitamin B2) 400 mg 400 mg PO DAILY 10/23/23 01/16/25 Unknown tablet sildenafil 100 mg tablet 100 mg PO DAILY PRN Erectile 10/23/23 01/16/25 Unknown Dysfunction empagliflozin 12.5 mg-metformin ER 1 tab PO BID 12/15/24 01/16/25 Unknown 1,000 mg tablet,extended rel 24 hr (Synjardy XR) ondansetron 4 mg disintegrating 4 mg PO Q6H PRN nausea and 12/15/24 01/16/25 Unknown tablet vomiting #14 tabs rizatriptan 10 mg tablet 10 mg PO UD PRN Migraine Headache 12/15/24 01/16/25 Unknown semaglutide 2 mg/dose (8 mg/3 mL) 2 mg subcut Q7D 12/15/24 01/16/25 Unknown subcutaneous pen injector (Ozempic) cetirizine 10 mg tablet 10 mg PO DAILY 01/16/25 01/16/25 Unknown glucosamine-chondroitin 250 mg-200 1 tab PO QAM 01/16/25 01/16/25 Unknown mg tablet Past Medical History Medical History Anxiety Asthma stable Chronic back pain Diabetes mellitus, type 2 IDDM Finger dislocation resolved History of kidney stones Hx of difficult intubation Hx glidescope intubation: L4-L5 decompression/fusion: 02/05/15: Glidescope#4, Grade view 1, ETT 8.0 at [facility] Hx of gastroesophageal reflux (GERD) controlled Hx of migraine headaches Hyperlipidemia Hypertension stable per pt. Morbid obesity RLS (restless legs syndrome) Skipped heart beats Occasional; f/u PCP Sleep apnea CPAP Slow to wake up after anesthesia Past Family History Family History Father Family history of diabetes mellitus Brother Family history of diabetes mellitus Past Surgical History Surgical History History of back surgery (2019) 2014, L4-L5 mary carmen placement 2018, L3-L4 D&F and L4-L5 mary carmen removal History of esophagogastroduodenoscopy (EGD) History of total left knee replacement History of total right knee replacement Hx of cardiac cath 2016, CP (found to be anxiety induced later,) char chandler, no stents; f/u PCP onlycarmel at the time of cath Hx of colonoscopy Hx of umbilical hernia repair multiple Social History Smoking Status: Never smoker tobacco type: smokeless tobacco Do You Dip or Chew Tobacco: No Hx Alcohol Use: Yes (none since 2021) Alcohol type: beer, wine and hard liquor alcohol intake frequency: holidays/special occasions only Hx Substance Use: No substance use type: does not use Lab Results Anesthesia Preop Results Results Anesthesia Widget: WBC 7.59 K/ul (4.8-10.8) 01/06/25 Hgb 13.8 g/dl (14.0-18.0) L 01/06/25 Hct 42.2 % (42.0-52.0) 01/06/25 Plt 255 K/uL (130-400) 01/06/25 Na 136 mmol/L (136-145) 12/15/24 K 4.3 mmol/L (3.5-5.1) 12/15/24 Cl 102 mmol/L (98-107) 12/15/24 CO2 24 mmol/L (21-32) 12/15/24 BUN 13 mg/dl (6-23) 12/15/24 Creat 0.96 mg/dl (0.6-1.4) 12/15/24 Glucose Level 208 mg/dl (70-99(Fasting)) H 12/15/24 POC Glucose 201 mg/dl (70-99) H 12/15/24 PT 12.4 Seconds (9.0-12.0) H 12/15/24 INR 1.2 (0.9-1.1) H 12/15/24 Urine Color Yellow 12/15/24 Urine Appearance Clear (Clear) 12/15/24 Urine pH 5.5 (4.5-7.5) 12/15/24 Urine Specific [place] 1.043 (1.000-1.030) H 12/15/24 Urine Protein Negative (Negative) 12/15/24 Urine Glucose (UA) 3+ (Negative) H 12/15/24 Urine Ketones 3+ (Negative) H 12/15/24 Urine Blood Negative (Negative) 12/15/24 Urine Nitrite Negative (Negative) 12/15/24 Urine Bilirubin Negative (Negative) 12/15/24 Urine Urobilinogen Negative (Negative) 12/15/24 Urine Leukocyte Esterase Negative (Negative) 12/15/24 Testing Electrocardiogram Date: 12/15/24 NSR, rate 93 bpm Poor R wave progression, consider anterior LA vs lead placement vs LVH No significant change vs Jan 12, 2020 EKG Chest X-Ray Date: 12/15/24 *1 view* Stable mild cardiomegaly without pulmonary vascular congestion. Inspiration is shallow. There is mild stranding at the left lung base. No other consolidation or pleural effusion. No pneumothorax. IMPRESSION: Likely atelectasis left lung base. Other Testing Head CT 12/15/24 No acute findings. Abdomen pelvis CT 12/15/24 1. Equivocal cholelithiasis with findings suspicious for acute cholecystitis. Findings could be correlated with ultrasound. 2. Wall thickening of the duodenum and hepatic flexure, likely reactive secondary to the gallbladder inflammation. 3. No bowel obstruction or bowel wall thickening. 4. Cholelithiasis.
[2025-01-23] MEDS: LR 15ML/HR IV SCH (06:13)
[2025-01-23] MEDS ORDERED: LIDOCAINE 2% 2 ML VIAL/AMP(20MG/ML) INFIL ONE (06:44)
[2025-01-23] MEDS ORDERED: ONDANSETRON INJ 2 MG/ML 2 ML VIAL ONE (06:44)
[2025-01-23] MEDS ORDERED: DEXAMETHASONE SOD INJ 4 MG/ML VIAL ONE (06:44)
[2025-01-23] MEDS ORDERED: PROPOFOL IV EMULSION 10 MG/ML 20 ML VIAL IV ONE (06:44)
[2025-01-23] MEDS ORDERED: MIDAZOLAM HCL 1 MG/ML 2ML VIAL ONE (06:45)
[2025-01-23] MEDS ORDERED: ROCURONIUM BROMIDE 10 MG/ML 5 ML VIAL IV ONE ×2 (06:46→08:18)
[2025-01-23] MEDS ORDERED: ATROPINE SULFATE 0.1 MG/ML 10ML SYR IV PRN (06:50)
[2025-01-23] MEDS ORDERED: ONDANSETRON INJ 2 MG/ML 2 ML VIAL IV PRN ×2 (06:50→08:44)
[2025-01-23] MEDS ORDERED: PROMETHAZINE HCL 6.25 MG in SODIUM CHLORIDE 0.9% 50 ML IV PRN (06:50)
[2025-01-23] MEDS ORDERED: ACETAMINOPHEN 1000 MG/100 ML IV IV ONE (07:06)
--- NOTE | 2025-01-23 07:11 | History & Physical Bridge Note ---
Date of Service January 23, 2025 History & Physical Bridge Note I have examined the patient, reviewed the History & Physical and in the interval since the performance of the History & Physical I have noted the following changes of clinical significance: no changes noted
[2025-01-23] MEDS ORDERED: ePHEDrine sulfate 50 MG/5 ML SYR ONE (08:00)
[2025-01-23] MEDS ORDERED: SUGAMMADEX SODIUM 200 MG/2 ML VIAL IV ONE (08:20)
[2025-01-23] MEDS: BUPIVACAINE/EPINEPHRINE 0.5% MPF 1:200,000 30 ML VIAL ONE (08:28)
[2025-01-23] MEDS ORDERED: ALUMINUM/MAGNESIUM SUSP 30 ML UDC PO PRN (08:44)
[2025-01-23] MEDS ORDERED: MoRPHine SULFATE 2 MG/ML CARP IV PRN (08:44)
[2025-01-23] MEDS ORDERED: MAGNESIUM HYDROXIDE SUSP 30 ML UDC PO PRN (08:44)
--- NOTE | 2025-01-23 08:44 | Operative Report ---
Post Operative Report Pre & Post Diagnosis Operation Date: 01/23/25 07:00 Symptomatic cholelithiasis, chronic cholecystitis I identified the patient and participated in the time-out.: Yes Procedure Operation Date: 01/23/25 07:00 Laparoscopic Cholecystectomy Surgeon Shon Gonsales MD Tank Processor Catherine Lombardi PA-C Estimated Blood Loss 38 Findings Consistent with Post-Op Diagnosis Chronic inflammatory changes of the gallbladder with tethering of the transverse colon to the chronically inflamed gallbladder. Specimens Gallbladder to pathology Drains Shay drain in the gallbladder fossa Anesthesia Type General Complications none Disposition Accompanied Patient To Recovery: No Disposition: Recovery Room Indications This is a 59-year-old male who was seen in my office after about acute cholecystitis. He was seen a few weeks post this attack and will take the OR 6 weeks post attack. We talked in detail please recommend laparoscopic cholecystectomy. He understands all the risks and wishes to proceed. Description of Procedure The patient was taken the OR, placed in the supine position and underwent excellent general endotracheal anesthesia. Their abdomen is prepped and draped normal sterile fashion. A transverse supraumbilical incision was made and dissection was taken down to identify the anterior fascia. Two Vicryl sutures were placed on either side of the midline and his midline was then incised. The peritoneal cavity was entered bluntly with Marcia clamp. A 12mm Calderon trocar was then inserted and secured. Good pneumoperitoneum was achieved to 15 mmHg pressure. The patient was placed in head up and rolled to the left position. A 11mm subxiphoid and two 5mm lateral ports were placed in the normal fashion. The gallbladder was identified after his transverse colon was from his chronically inflamed gallbladder. The fundus of the gallbladder was then retracted superiorly. The neck of the gallbladder was grasped and then retracted laterally. This splayed open the Hepatocystic triangle which had dense inflammatory changes. The gallbladder partially tore and pus was expressed from the gallbladder. Attention was then turned to taking down the peritoneal attachments and identify the cystic duct and cystic artery. Once these were skeletonized and a medial and lateral window was created between the gallbladder fossa and the duct, thereby ensuring the critical view. Then three clips were then placed distally on cystic duct one proximally on the cystic duct, it was then transected. Two clips were then placed approximately on the cystic artery one distally, the cystic artery was transected. An electrocautery hook was then used to move the gallbladder off the gallbladder fossa. There was some bile spillage but no stones were spilled. The gallbladder was then placed into an Endobag and brought out through the supraumbilical incision. The pneumoperitoneum was re-established and abdomen was irrigated out until the suction fluid was clear. There were some areas on the gallbladder fossa which were raw which were cauterized and then a Surgicel was used to cover the ga llbladder fossa. A Shay drain was placed in the gallbladder fossa and secured with a nylon suture. The ports were then removed and the abdomen decompressed. The fascia of the supraumbilical incision was closed with Vicryl sutures. 0.5% Marcaine with epinephrine local was to create a local field block. A Vicryl suture was used to close the skin. Dermabond was used to reinforce the incisions. Sterile dressings were applied. Patient tolerated the procedure without complication and sent to the postop recovery period of observation. They will then be sent to the floor for the rest of their care. Catherine Lombardi PA-C was present and participated in the entire procedure. She was integral in skin closure, retraction, and camera manipulation. There was no qualified resident available to assist. I attest to the content of the Intraoperative Record and any orders documented therein. Any exceptions are noted below.
--- NOTE | 2025-01-23 09:49 | Anesthesiology Progress Note ---
Date of Service January 23, 2025 Anesthesia Post Procedure Vital Signs Vital Signs: Temp Pulse Resp BP BP Pulse Ox O2 Del Method 01/23/25 09:35 37.5 C 99 H 15 144/99 H 100 Nasal Cannula 01/23/25 09:25 96 H 15 133/84 93 Nasal Cannula 01/23/25 09:15 88 14 152/77 H 94 Room Air 01/23/25 09:05 89 18 157/81 H 96 Oxymask 01/23/25 08:55 83 19 155/74 H 96 Oxymask 01/23/25 08:49 36.2 C L 96 H 19 155/93 H 93 Oxymask 01/23/25 05:59 37.2 C 71 20 127/86 94 Room Air O2 Flow Rate 01/23/25 09:35 2 01/23/25 09:25 2 01/23/25 09:15 01/23/25 09:05 2 01/23/25 08:55 7 01/23/25 08:49 7 01/23/25 05:59 Pain Intensity Abdomen: Pain Intensity: 3 Transfer of Care Handoff Completed per policy Notes Mental Status: alert / awake / arousable Patient Amnestic to Procedure: Yes Nausea / Vomiting: adequately controlled Pain: adequately controlled Airway Patency, RR, SpO2: stable & adequate BP & HR: stable & adequate Hydration State: stable & adequate Anesthetic Complications: no major complications apparent
[2025-01-23] MEDS: LACTATED RINGER'S 1,000 ML IV SCH (10:28)
[2025-01-23] MEDS: CLINDAMYCIN/D5W 900 MG/50 ML BAG IV SCH (10:55)
--- NOTE | 2025-01-23 11:08 | Hospitalist Consultation ---
Date of Consultation January 23, 2025 Assessment & Plan (1) Symptomatic cholelithiasis: (2) Chronic cholecystitis: (3) Diabetes mellitus, type II: (4) JERMAINE on CPAP: (5) HTN (hypertension): Plan This is a 59 y/o male with insulin-requiring DM2, JERMAINE on CPAP, HTN, dyslipidemia , depression, and other history as outlined below who underwent cholecystectomy today by Dr. Gonsales for symptomatic cholelithiasis, chronic cholecystitis and for whom we have been consulted to assist with post-operative medical management. #Symptomatic cholelithiasis #Chronic cholecystitis #POD #0 lap da - Pain control, diet per primary team - Agree with broad-spectrum antibiotics for now as ordered by primary team - Encourage OOB, incentive spirometry #Insulin-requiring type 2 diabetes - Basal insulin with sliding scale ordered - Continue to hold Ozempic and Synjardy for now #JERMAINE on CPAP - Will order CPAP with home settings #Hypertension - Chronic, resume home medications tomorrow - took AM dose of metoprolol today Pt seen and reviewed with collaborating physician, Dr. Beard. Plan of care discussed and as outlined above. Thank you for this consultation. We will continue to follow this patient with you. A member of the [facility] team is available 24/11 via [employer]. Please don't hesitate to call with questions. Lorenzo Mesa PA-C Supervising Physician Co-Signing Physician Notes Attending Addendum: Case reviewed with the advanced practitioner. I have personally performed a history and physical examination on the patient. I have reviewed the advanced practitioner's documentation on the date of service referenced in note, and I agree with, and take responsibility for the plan of c are. please refer to her notes for full details patient seen and examined, records reviewed by myself as well on exam, patient seen resting in bed, sleeping, easily awakened, comfortable has some mild soreness over surgical site no chest pain, dyspnea, palpitations, dizziness no other symptoms VS noted and reviewed oriented x3, not in distress, speaks in sentences with no effort nor accessory muscle use normal rate, regular rhythm, no murmurs clear breath sounds bilaterally non distended, soft, nontender, drain in place with serosanguinous output no bipedal edema, erythema, warmth no neuro deficits all labs, imaging noted and reviewed diagnoses and plan of care as per advanced practitioner's notes I spent a total of 35 minutes coordinating, documenting, and providing care for this patient, excluding time spent in the performance of separately billed services or time spent by another provider/QHP. Jaime Beard MD History of Present Illness Reason for Consultation: post-operative medical management Requesting Physician: Dr. Shon Gonsales Attending Physician: Shon Gonsales MD History of Present Illness This is a 59 y/o male with insulin-requiring DM2, JERMAINE on CPAP, HTN, dyslipidemia, depression, and other history as outlined below who underwent cholecystectomy today by Dr. Gonsales for symptomatic cholelithiasis, chronic ch olecystitis and for whom we have been consulted to assist with post-operative medical management. Pt is seen post-operatively on the floor - currently his main complaint is incisional pain. He denies N/V, chest pain, palpitations, dyspnea, WRIGHT, dizziness. He has DM2 for which he follows with glycemic pharmacy as an outpatient. Uses a CGM to monitor his glucose - notes that sugars have been higher the last few days since some of his diabetic medications have been on hold for this surgery. Last seen by glycemic pharmacist on 01/18/25 and was put on: Synjardy XR 12.5 mg- 1000 mg twice daily Ozempic 2 mg weekly on Tuesdays Lantus 30 units daily in evening Novolog 6-10 units with breakfast; 10-12 units with lunch; 10-12 with supper Recommended to stop Ozempic and Synjardy prior to surgery. Allergies Allergy/AdvReac Type Severity Reaction Status Date / Time amoxicillin Allergy Intermediate hives Verified 01/23/25 05:51 Cephalosporins Allergy Intermediate hives Verified 01/23/25 05:51 Penicillins Allergy Intermediate hives Verified 01/23/25 05:51 cefaclor Allergy Unknown HIVES Verified 01/23/25 05:51 Iodinated Contrast Media AdvReac Intermediate vomiting Verified 01/23/25 05:51 Home Medications Medication Instructions Recorded Confirmed Type albuterol sulfate 90 mcg/actuation 2 puff inhalation QID PRN 01/12/20 01/23/25 History aerosol inhaler Shortness Of Breath Or Wheezing citalopram 40 mg tablet (Celexa) 40 mg PO QAM 01/12/20 01/23/25 History insulin aspart U-100 100 unit/mL 0 unit subcut TIDM 01/12/20 01/23/25 History (3 mL) subcutaneous pen (Novolog FlexPen U-100 Insulin aspart) insulin glargine 100 unit/mL (3 30 unit subcut HS 01/12/20 01/23/25 History mL) subcutaneous pen (Lantus Solostar U-100 Insulin) meloxicam 15 mg tablet (Mobic) 15 mg PO QAM 01/12/20 01/23/25 History metoprolol succinate 25 mg 25 mg PO QAM 01/12/20 01/23/25 History tablet,extended release 24 hr (Toprol XL) multivitamin 1 tab PO QAM 01/12/20 01/23/25 History atorvastatin 20 mg tablet 20 mg PO HS 06/26/22 01/23/25 History acetaminophen 325 mg capsule 325 mg PO QID PRN Pain 10/23/23 01/23/25 History lorazepam 1 mg tablet (Ativan) 1 mg PO DAILY PRN Anxiety 10/23/23 01/23/25 History magnesium chloride 70 mg 70 mg PO DAILY 10/23/23 01/23/25 History (magnesium chloride) tablet,delayed release potassium citrate 99 mg capsule 0 mg PO DAILY 10/23/23 01/23/25 History riboflavin (vitamin B2) 400 mg 400 mg PO DAILY 10/23/23 01/23/25 History tablet sildenafil 100 mg tablet 100 mg PO DAILY PRN Erectile 10/23/23 01/23/25 History Dysfunction empagliflozin 12.5 mg-metformin ER 1 tab PO BID 12/15/24 01/23/25 History 1,000 mg tablet,extended rel 24 hr (Synjardy XR) ondansetron 4 mg disintegrating 4 mg PO Q6H PRN nausea and 12/15/24 01/23/25 Rx tablet vomiting #14 tabs rizatriptan 10 mg tablet 10 mg PO UD PRN Migraine Headache 12/15/24 01/23/25 History semaglutide 2 mg/dose (8 mg/3 mL) 2 mg subcut Q7D 12/15/24 01/23/25 History subcutaneous pen injector (Ozempic) cetirizine 10 mg tablet 10 mg PO DAILY 01/16/25 01/23/25 History glucosamine-chondroitin 250 mg-200 1 tab PO QAM 01/16/25 01/23/25 History mg tablet melatonin 1 mg tablet 0 mg PO HS PRN Sleep 01/23/25 01/23/25 History Patient History Medical History Anxiety Asthma stable Chronic back pain Diabetes mellitus, type 2 IDDM Finger dislocation resolved History of kidney stones Hx of difficult intubation Hx glidescope intubation: L4-L5 decompression/fusion: 02/05/15: Glidescope#4, Grade view 1, ETT 8.0 at [facility] Hx of gastroesophageal reflux (GERD) controlled Hx of migraine headaches Hyperlipidemia Hypertension stable per pt. Morbid obesity RLS (restless legs syndrome) Skipped heart beats Occasional; f/u PCP Sleep apnea CPAP Slow to wake up after anesthesia Surgical History History of back surgery (2018) 2014, L4-L5 mary carmen placement 2018, L3-L4 D&F and L4-L5 mary carmen removal History of esophagogastroduodenoscopy (EGD) History of total left knee replacement History of total right knee replacement Hx of cardiac cath 2016, CP (found to be anxiety induced later,) char chandler, no stents; f/u PCP onlycarmel at the time of cath Hx of colonoscopy Hx of umbilical hernia repair multiple Family History Father Family history of diabetes mellitus Brother Family history of diabetes mellitus Social History Smoking Status: Never smoker 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: 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, 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); Do You Dip or Chew Tobacco: No; Tobacco Cessation Education Requested by Patient: No Hx Alcohol Use: Yes (none since 2021) Alcohol type: beer, wine and hard liquor Hx Substance Use: No Preferred Language: Irish Communication Ability: Effective Visual Impairment: No Limitations 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 Beliefs That Will Affect Care: None marital status: Current Living Situation: Spouse Other Information That Helps Us Care for You: No Feels Safe at Home: Yes Safety Concerns: Feels Safe At This Time Assistive Devices: CPAP Review of Systems Review of Systems: All systems reviewed & are unremarkable except as noted in Subjective Physical Exam Physical Exam: General: awake, alert, NAD HEENT: no scleral icterus, moist oral mucosa Neck: supple, trachea midline Heart: RRR Lungs: CTA bilaterally Abdomen: soft, +BS, drain in place with serosanguineous drainage, +incisional tenderness Skin: warm, dry, no jaundice or rashes Extremities: distal pulses intact and equal, no pedal edema Results & Data Results & Data Vital Signs (Past 12 Hours) Vital Signs Temp Pulse Resp BP BP Pulse Ox O2 Del Method 01/23/25 10:49 90 18 129/83 91 Room Air 01/23/25 10:41 Room Air 01/23/25 10:09 36.9 C 98 H 16 163/94 H 93 Room Air 01/23/25 09:35 37.5 C 99 H 15 144/99 H 100 Nasal Cannula 01/23/25 09:25 96 H 15 133/84 93 Nasal Cannula 01/23/25 09:15 88 14 152/77 H 94 Room Air 01/23/25 09:05 89 18 157/81 H 96 Oxymask 01/23/25 08:55 83 19 155/74 H 96 Oxymask 01/23/25 08:49 36.2 C L 96 H 19 155/93 H 93 Oxymask 01/23/25 05:59 37.2 C 71 20 127/86 94 Room Air O2 Flow Rate 01/23/25 10:49 01/23/25 10:41 01/23/25 10:09 01/23/25 09:35 2 01/23/25 09:25 2 01/23/25 09:15 01/23/25 09:05 2 01/23/25 08:55 7 01/23/25 08:49 7 01/23/25 05:59 Laboratory Results Lab Results 01/23/25 01/23/25 Range/Units 05:48 08:48 POC Glucose 150 H 188 H (70-99) mg/dl Medications Administered Fentanyl Citrate (Fentanyl Citrate Pf 100 Mcg/2 Ml Vial) 50 mcg IV Q5M PRN PRN Reason: PACU Use Only-Pain Stop: 01/23/25 14:50 Last Admin: 01/23/25 09:22 Dose: 50 mcg Documented By: Admin: 01/23/25 09:15 Dose: 50 mcg Documented By: GEM Lactated Ringer's (Lr) 1,000 mls @ 15 mls/hr IV .Q24H REGINA Stop: 01/24/25 05:59 Last Infusion: 01/23/25 07:12 Dose: Infused Documented By: JRReilly Admin: 01/23/25 06:13 Dose: 15 mls/hr Documented By: MG Clindamycin Phosphate (Cleocin/D5w) 900 mg in 50 mls @ 100 mls/hr IV PREOP REGINA Stop: 01/23/25 14:00 Last Admin: 01/23/25 10:55 Dose: Not Given Documented By: NAHEED Lactated Ringer's (Lr) 1,000 mls @ 80 mls/hr IV .[id number] [facility] Stop: 01/26/25 08:44 Last Admin: 01/23/25 10:28 Dose: 80 mls/hr Documented By: NAHEED Discontinued Medications Bupivacaine HCl/Epinephrine Bitart (Bupivacaine/Epinephrine 0.5% Mpf 1:200,000 30 Ml Vial) Confirm Administered Dose 30 ml .ROUTE .STK-MED ONE Stop: 01/23/25 06:49 Last Admin: 01/23/25 08:28 Dose: 20 ml Documented By: [id number] (3) Diabetes mellitus, type II Diabetes mellitus complication status: with other specified complication Diabetes mellitus detention insulin use: with detention use Qualified Code(s): E11.69 - Type 2 diabetes mellitus with other specified complication; Z79.4 - FPC (current) use of insulin (5) HTN (hypertension) Hypertension type: unspecified Qualified Code(s): I10 - Essential (primary) hypertension
[2025-01-23] MEDS ORDERED: CARBOHYDRATES FOR HYPOGLYCEMIA PO PRN (11:11)
[2025-01-23] MEDS ORDERED: DEXTROSE 50% 50 ML SYRINGE IV PRN (11:11)
[2025-01-23] MEDS ORDERED: GLUCOSE 40% GEL 15 GM TUBE PO PRN (11:11)
[2025-01-23] MEDS ORDERED: GLUCOSE 10 TAB/TUBE PO PRN (11:11)
[2025-01-23] MEDS ORDERED: GLUCAGON FOR INJ 1 MG VIAL SQ PRN (11:11)
[2025-01-23] MEDS: CIPROFLOXACIN / D5W 200 MG/100 ML BAG IV ONE (11:34)
[2025-01-23] MEDS: metroNIDAZOLE 500 MG/100 ML BAG IV SCH (11:34)
[2025-01-23] MEDS: CETIRIZINE HCL 10 MG TABLET PO SCH (11:45)
[2025-01-23] MEDS: METOPROLOL SUCC 25MG EXT REL TAB PO SCH (12:20)
[2025-01-23] MEDS: [UNRECOGNIZED DRUG - OTHER] PO SCH (12:20)
[2025-01-23] MEDS: EMPAGLIFLOZIN PO SCH (12:20)
[2025-01-23] MEDS: METFORMIN PO SCH (12:20)
[2025-01-23] MEDS: CITALOPRAM 40 MG TAB PO SCH (12:20)
[2025-01-23] MEDS: INSULIN ASPART PER UNIT CHARGE SC SCH (13:16)
[2025-01-23] MEDS: MoRPHine SULFATE 4 MG/ML 1 ML CARP\\VIAL IV PRN (13:24)
[2025-01-23] MEDS: LANTUS PER UNIT CHARGE SQ SCH (20:54)
[2025-01-23] MEDS: ATORVASTATIN 20 MG TAB PO SCH (20:54)
[2025-01-23] MEDS: LORazepam 1 MG TAB PO PRN (21:55)
[2025-01-24] MEDS: ALBUTEROL HFA 8 GM INHALER INH PRN (01:37)
[2025-01-24] MEDS: SIMETHICONE 80 MG CHEW PO PRN (08:59)
[2025-01-24] MEDS: METOPROLOL SUCC 25MG EXT REL TAB PO SCH (09:07)
[2025-01-24] MEDS: CITALOPRAM 40 MG TAB PO SCH (09:08)
--- NOTE | 2025-01-24 12:51 | Surgery Progress Note ---
Date of Service January 24, 2025 Assessment & Plan (1) Chronic cholecystitis: Plan: con't IV abx with infected GB check CBC in AM con't Shay Admission and Anticipated Discharge Date Admission Date: January 23, 2025 Subjective pain controlled Shay serosanguinous AF Review of Systems Constitutional: + chills; no fever Respiratory: no dyspnea Cardiovascular: no chest pain Gastrointestinal: + abdominal pain; no nausea and no vomit ing Neurologic: no localized weakness Psychiatric: no behavioral changes Physical Exam Constitutional: WD/WN, vitals as above Eyes: no scleral abnormality Respiratory: normal respiratory effort Cardiovascular: Rate/Rhythm: regular rate and regular rhythm Gastrointestinal (Abdomen): Inspection/Auscultation: + abdomen distended and + abdominal wall ecchymosis Percussion/Palpation: + abdomen tender and abdomen soft; no guarding Results & Data Vital Signs (Past 12 Hours) Vital Signs Temp Pulse Pulse Resp BP Pulse Ox O2 Del Method 01/24/25 09:05 96 H 124/75 01/24/25 07:21 37.1 C 100 H 16 116/69 95 Room Air 01/24/25 07:20 Room Air 01/24/25 02:10 36.7 C 95 H 16 144/71 H 95 Room Air
--- NOTE | 2025-01-24 12:55 | Hospitalist Progress Note ---
Date of Service January 24, 2025 Assessment & Plan (1) Symptomatic cholelithiasis: (2) Chronic cholecystitis: (3) Diabetes mellitus, type II: (4) JERMAINE on CPAP: (5) HTN (hypertension): Plan This is a 59 y/o male with insulin-requiring DM2, JERMAINE on CPAP, HTN, dyslipidemia, depression, and other history as outlined below who underwent cholecystectomy today by Dr. Gonsales for symptomatic cholelithiasis, chronic cholecystitis and for whom we have been consulted to assist with post-operative medical management. #Symptomatic cholelithiasis #Chronic cholecystitis #POD #1 lap da - Pain control, diet per primary team - Gen sx want antibiotic rx due to infected gb - c/w cipro + metro, closely monitor qtc, ekg in AM - Encourage OOB, incentive spirometry #Insulin-requiring type 2 diabetes - Basal insulin with sliding scale ordered - Continue to hold Ozempic and Synjardy for now #JERMAINE on CPAP - Will order CPAP with home settings #Hypertension - Chronic, resume home medications as able Admission and Anticipated Discharge Date Admission Date: January 23, 2025 Subjective Patient was seen and examined at bedside. Patient was sitting up in bed, on room air, NAD. Patient reports improving right upper quadrant pain, reports operative pain under control, reports of being able to eat okay, is moving gas, has not moved bowel. Patient denies other review of symptoms. Physical Exam Physical Exam: General: awake, alert, NAD HEENT: no scleral icterus, moist oral mucosa Neck: supple, trachea midline Heart: RRR Lungs: CTA bilaterally Abdomen: soft, +BS, drain in place with serosanguineous drainage, +incisional tenderness Skin: warm, dry, no jaundice or rashes Extremities: distal pulses intact and equal, no pedal edema Results & Data Results & Data Vital Signs (Past 12 Hours) Vital Signs Temp Pulse Pulse Resp BP Pulse Ox O2 Del Method 01/24/25 09:05 96 H 124/75 01/24/25 07:21 37.1 C 100 H 16 116/69 95 Room Air 01/24/25 07:20 Room Air 01/24/25 02:10 36.7 C 95 H 16 144/71 H 95 Room Air (3) Diabetes mellitus, type II 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
[2025-01-24] MEDS ORDERED: PROMETHAZINE 12.5 MG/50.5 ML BAG IV PRN (12:57)
[2025-01-24] MEDS: CIPROFLOXACIN / D5W 400 MG/200 ML BAG IV SCH (15:01)
[2025-01-24] MEDS ORDERED: Nursing to Pharmacy Communication SCH (16:15)
[2025-01-24] MEDS: ACETAMINOPHEN 325 MG TAB PO PRN (19:52)
[2025-01-24] MEDS: LORazepam 1 MG TAB PO STA (20:56)
[2025-01-24 21:21] VITALS: RESP 16; TEMP 99.3
[2025-01-25] MEDS: LORazepam 1 MG TAB PO PRN (05:04)
[2025-01-25 06:18] LABS: Hematocrit (blood only) 35.8 % (42.0-52.0); Hemoglobin 11.7 g/dl (14.0-18.0); Immature Granulocytes # (auto) 0.06 K/uL (0.01-0.20); Immature Granulocytes % (auto) 0.6 %; Mean Corpuscular Hemoglobin 29.0 pg (25.0-34.0); Mean Corpuscular Volume 88.6 fL (80.0-100.0); Platelet Count 209 K/uL (130-400); RDW Standard Deviation 47.3 fL (36.4-46.3); Red Blood Count 4.04 M/uL (4.70-6.10); White Blood Count 9.65 K/ul (4.8-10.8)
[2025-01-25 06:42] LABS: Anion Gap 8.0 (3-11); Blood Urea Nitrogen 10.0 mg/dl (6-23); Calcium 8.7 mg/dl (8.6-10.3); Carbon Dioxide 28.0 mmol/L (21-32); Chloride 101.0 mmol/L (98-107); Creatinine Clr Calc Pharmacy 138.3 ml/min; Glucose 233.0 mg/dl (70-99(Fasting)); Potassium 4.2 mmol/L (3.5-5.1); Sodium 137.0 mmol/L (136-145)
[2025-01-25 07:24] VITALS: O2SAT 93
--- NOTE | 2025-01-25 09:02 | Discharge Summary ---
Date of Service January 25, 2025 Admission HPI Per Admitting Provider This is a 59-year-old male admitted after an outpatient planned laparoscopic ostectomy for chronic cholecystitis and an acute infection in his gallbladder. Admission Exam Per Admitting Provider HEENT:, normocephalic atraumatic Cardiovascular: Regular rate and rhythm Pulmonary: Lungs clear to auscultation Abdomen: Soft, nontender Extremities: No edema Principal Diagnosis Chronic calculous cholecystitis Discharge Exam Constitutional WD/WN, vitals as above Respiratory normal respiratory effort Cardiovascular Rate/Rhythm: regular rate and regular rhythm Gastrointestinal (Abdomen) Inspection/Auscultation: + abdominal surgical drain present; abdomen not distended Percussion/Palpation: + abdomen tender and abdomen soft Abdominal wall erythema Musculoskeletal Head/Neck/Chest: normocephalic and head atraumatic Skin no rashes, warm and dry Discharge Data Allergies Allergy/AdvReac Type Severity Reaction Status Date / Time amoxicillin Allergy Intermediate hives Verified 01/23/25 05:51 Cephalosporins Allergy Intermediate hives Verified 01/23/25 05:51 Penicillins Allergy Intermediate hives Verified 01/23/25 05:51 cefaclor Allergy Unknown HIVES Verified 01/23/25 05:51 Iodinated Contrast Media AdvReac Intermediate vomiting Verified 01/23/25 05:51 Consultations 01/23/25 08:52 Consult Hospitalist Routine Procedures Performed Operation Date: 01/23/25 07:00 Actual Procedures p Laparoscopic Cholecystectomy(Not Applicable) - Shon Gonsales MD Hospital Course (1) Chronic cholecystitis: Patient was taken to the OR and underwent laparoscopic ostectomy. He was found to have significant chronic inflammation with his transverse colon plastered to his gallbladder. This was freed his gallbladder had pus within it. The gallbladder was taken out laparoscopically without significant problems. A drain was left. He was monitored postop was afebrile was tolerated diet is maintained on IV antibiotics. He be discharged home on postoperative day #2 on p.o. Cipro and pain control. His diabetes is managed through a hospital consult without issues. Total Time Total Time Spent Total Time Spent (In Minutes): 30 Total Time Includes: Examination of the Patient, Discharge Planning and Medication Reconciliation Discharge Plan Discharge Items Patient Disposition: Home - Self-Care Reason For Visit: Calculus of Gallbladder Withouth Cholecystitis Wit Discharge Diagnosis: Chronic cholecystitis Activity: Per Instructions section Lifting: No more than 25 pounds Bathing: No limitations Bathing Comment: shower avoids submerging incisions Sexual Activity: When tolerated Exercise/Sports: Wait until after follow-up appointment Driving/Machine Use: No limitations Weightbearing: Full weightbearing Non-emergency contact: Surgeon Call non-emergency contact if: your pain is concerning for you, your temperature is above 101.5 and your wound pain has increased Follow-up/Referrals: Kailash Soto MD [Primary Care Provider] - Diet: Regular Addtl Attending Provider Instructions: Post-Surgical ~Discharge Instructions Activity Recommendations: - Lifting limitation: (<20 pounds for 3-4 weeks), - Exercise/sex/sports limit: (nonstrenuous for 2 weeks), - Driving or machine use limit: (none after 3 days post-op as long as pain free and no longer taking narcotic pain medication), - Shower/bathe limit: (may shower tomorrow, no submerging incisions underwater for 2 weeks, Dermabond will peel off in 1-2 weeks) - Call the surgeon's office with any questions or concerns - ; ex. temperature higher than 101.5 degrees F, excessive bleeding or pain - Record drainage of BALDEMAR daily Diet: - Resume previous diet, regular as tolerated. Medications: - Resume previous medications unless instructed otherwise by your surgeon. - May alternate extra strength Tylenol and Ibuprofen as needed for mild to moderate pain - Tylenol 650 mg every 6 hours as needed - Ibuprofen 600 mg every 6 hours as needed, take with food - Percocet 1 every 6 hours, as needed for moderate to severe pain. Narcotics may cause nausea on an empty stomach, please eat before taking pain pills - Recommend daily stool softener (Colace) while taking narcotic pain medication to prevent constipation or straining. Drink plenty of water daily. Follow-up: - If not already scheduled, please call the office to schedule a two week follow-up appointment. Office number -- 2 weeks Pending Studies at Discharge: No Stand-Alone Forms: [email or web address], Smoking Cessation Medications and DC Order Prescriptions: New oxycodone-acetaminophen [Percocet] 5-325 mg tablet 1 tab PO Q6H PRN (Reason: pain) Qty: 14 0RF ciprofloxacin HCl [Cipro] 500 mg tablet 500 mg PO BID Qty: 10 0RF Continued atorvastatin 20 mg tablet 20 mg PO HS riboflavin (vitamin B2) 400 mg tablet 400 mg PO DAILY lorazepam [Ativan] 1 mg tablet 1 mg PO DAILY PRN (Reason: Anxiety) sildenafil 100 mg tablet 100 mg PO DAILY PRN (Reason: Erectile Dysfunction) Rx Instructions: administer 30 minutes to 4 hours before activity magnesium chloride 70 mg tablet,delayed release (DR/EC) 70 mg PO DAILY acetaminophen 325 mg capsule 325 mg PO QID PRN (Reason: Pain) potassium citrate 99 mg capsule 0 mg PO DAILY Patient Comments: OTC multivitamin Tablet 1 tab PO QAM citalopram [Celexa] 40 mg tablet 40 mg PO QAM meloxicam [Mobic] 15 mg tablet 15 mg PO QAM metoprolol succinate [Toprol XL] 25 mg tablet extended release 24 hr 25 mg PO QAM albuterol sulfate 90 mcg/actuation HFA aerosol inhaler 2 puff INHALATION QID PRN (Reason: Shortness Of Breath Or Wheezing) insulin aspart U-100 [Novolog FlexPen U-100 Insulin] 100 unit/mL (3 mL) insulin pen 0 unit SUBCUT TIDM Rx Instructions: sliding scale insulin glargine [Lantus Solostar U-100 Insulin] 100 unit/mL (3 mL) insulin p en 30 unit SUBCUT HS Synjardy XR 12.5-1,000 mg tablet, IR - ER, biphasic 24hr 1 tab PO BID Ozempic 2 mg/dose (8 mg/3 mL) pen injector 2 mg SUBCUT Q7D Patient Comments: thursday rizatriptan 10 mg tablet 10 mg PO UD PRN (Reason: Migraine Headache) Rx Instructions: take 1 tab at onset of headache; if no relief may repeat 1 tab after at least 2 hrs; max = 3 tabs/24 hr PO ondansetron 4 mg tablet,disintegrating 4 mg PO Q6H PRN (Reason: nausea and vomiting) Qty: 14 0RF cetirizine 10 mg Tablet 10 mg PO DAILY glucosamine-chondroitin 250-200 mg Tablet 1 tab PO QAM Rx Instructions: give after food/meal melatonin 1 mg Tablet 0 mg PO HS PRN (Reason: Sleep) Discharge Orders: Discharge Order (Routine); Ordered 01/25/25 Ordered By: Shon Gonsales Admission Data Admit Date/Time: 01/23/25 08:44 Attending Provider: Shon Gonsales Admit Provider: Shon Gonsales Primary Care Provider: Kailash Soto Other Providers: Varsha Murphy; Susan Rinaldi I.; Brock Chacon; Betzy Zapata; Tashia Mesa; Gretchen Maher; Cristela Carrillo; Ricky Dexter; Matias Treviño; Terrell Burks; Jaime Beard; Gracie Bustillo; Wally Mccabe; Heidy Ventura; Brandy Hernandez; Sofi Aaron; Lisa Garsia; Maral Koroma I.; Josse Travis; Lisette Lawrence; Juan C Zayas; Jefferson Marinelli; Phan Alanis; Warren Ferraro; Coby Salamanca; Dana Dean; Stef Galdamez; Rafi Kowalski; Juanita Yang; Josse Murray; Eagle Barrios; Ralph Pike; Louise Horner; Peggy Smith; Peggy Kirkpatrick; Domingo Medley; Avtar Fam
[2025-01-25 09:04] VITALS: BP 150/75; PULSE 98
--- NOTE | 2025-01-25 11:50 | Hospitalist Progress Note ---
Date of Service January 25, 2025 Assessment & Plan (1) Symptomatic cholelithiasis: (2) Chronic cholecystitis: (3) Diabetes mellitus, type II: (4) JERMAINE on CPAP: (5) HTN (hypertension): Plan This is a 59 y/o male with insulin-requiring DM2, JERMAINE on CPAP, HTN, dyslipidemia, depression, and other history as outlined below who underwent cholecystectomy today by Dr. Gonsales for symptomatic cholelithiasis, chronic cholecystitis and for whom we have been consulted to assist with post-operative medical management. #Symptomatic cholelithiasis #Chronic cholecystitis # Status post laparoscopic cholecystectomy on 01/23/2025 - Pain control, diet per primary team - Gen sx want antibiotic rx due to infected gb - c/w cipro + metro, closely monitor qtc, ekg in AM - Encourage OOB, incentive spirometry Remains stable as of today and has been tolerating diet without any symptoms Discharged from the surgery service #Insulin-requiring type 2 diabetes - Basal insulin with sliding scale ordered - Continue to hold Ozempic and Synjardy for now -No issues with blood sugar #JERMAINE on CPAP - Will order CPAP with home settings -Remains stable hemodynamically and without any respiratory symptoms and has been saturating normally on room air She #Hypertension - Chronic, resume home medications as able blood pressure remains controlled though on the upper side today at 150/75 Remains medically stable to be discharged Admission and Anticipated Discharge Date Admission Date: January 23, 2025 Subjective The patient was seen and examined in the presence of the daughter He has been feeling much better and complains to minimal abdominal discomfort No other significant symptoms He will be discharged by the primary team today Review of Systems Review of Systems: ALL systems reviewed and are unremarkable except as noted below Physical Exam Constitutional: well developed, well nourished and + obese; not ill appearing Eyes: PERRL, conjunctivae normal, anicteric sclerae ENMT: external ear and nose normal, oropharynx normal Neck: trachea midline, no thyromegaly Respiratory: no respiratory distress Auscultation: lungs clear to auscultation bilaterally Cardiovascular: Rate/Rhythm: regular rate and regular rhythm; not tachycardic Heart Sounds: normal S1 and normal S2; no murmur Extremities: no edema Gastrointestinal (Abdomen): Inspection/Auscultation: + abdomen distended and normal bowel sounds Percussion/Palpation: + abdomen tender (Mildly tender all over) and abdomen soft Musculoskeletal: No acute arthritis involving any of the joint Neurologic: normal touch/pain/proprioception and moves all extremities; no focal motor deficits Lymphatic: no cervical or axillary lymphadenopathy Results & Data Results & Data Vital Signs (Past 12 Hours) Vital Signs Temp Pulse Resp BP Pulse Ox O2 Del Method 01/25/25 09:02 98 H 150/75 H 93 Room Air 01/25/25 07:50 Room Air 01/25/25 07:24 37.4 C 99 H 16 153/73 H 93 Room Air Laboratory Results Short CBC 01/25/25 Range/Units 05:43 WBC 9.65 (4.8-10.8) K/ul Hgb 11.7 L (14.0-18.0) g/dl Hct 35.8 L (42.0-52.0) % Plt Count 209 (130-400) K/uL BMP 01/25/25 05:43 Sodium 137 Potassium 4.2 Chloride 101 Carbon Dioxide 28 BUN 10 Creatinine 0.72 Glucose 233 H Calcium 8.7 (3) Diabetes mellitus, type II 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
--- NOTE | 2025-01-26 05:50 | Electrocardiogram Report ---
Test Reason : Blood Pressure : */* mmHG Vent. Rate : 95 BPM Atrial Rate : 95 BPM P-R Int : 160 ms QRS Dur : 92 ms QT Int : 376 ms P-R-T Axes : 58 -22 2 degrees QTcB Int : 472 ms Normal sinus rhythm Nonspecific T wave abnormality Poor R wave progression, consider anterior TX vs. lead placement vs. LVH When compared with ECG of 15-Dec-2024 11:11, No significant change was found Confirmed by Brayan Conn ([id number]) on 01/26/2025 5:50:32 AM Referred By: Shon Gonsales Confirmed By: Brayan Conn
== END 2025-01-25 10:22 | disposition home or self-care (01) ==
LOC: 3E 05:36 → ASU 05:36